=== PATIENT | female | born 1965 | race Caucasian/White ===

== ENCOUNTER 2018-05-18 20:37 | Emergency (ER) | payer SELFPAY ==
[~2018-05-18] VITALS: Ht 170.2 cm; Wt 90.7 kg
[~2018-05-18 20:37] MED LIST: ALPR1TAB2 PO; CARI350T PO; HYDR-2766 PO; OLAN10TA9 PO
[2018-05-18 20:45] VITALS: BP 96/48
[2018-05-18] MEDS ORDERED: predniSONE 10 MG TABLET ONE (21:33)
[2018-05-18] MEDS: predniSONE 10 MG TABLET PO ONE (21:37)
--- NOTE | 2018-05-18 21:44 | ED.ADGEN ---
Past History Past Medical History: COPD, Hypertension Past Surgical History: No Surgical History Additional Smoking Information: 1 PPD Alcohol Use: None Drug Use: None Adult General HPI HPI 53-year-old female presents the emergency department with multiple unrelated complaints that she would like to have addressed. She states that she has fallen off a ladder about one month ago and had some right forearm pain. She also states that in the morning when she wakes up she noticed that her hand has pain and tingling. Just states that she has allergies as well as COPD and gets relief from her inhalers but she has been having a lot of wheezing and dry coughing that have kept her from work. Review of Systems Review of Systems Constitutional: Denies fever or chills Eyes: Denies change in visual acuity, redness, or eye pain HENT: Admits to nasal congestion, denies sore throat Respiratory: Denies cough or shortness of breath Cardiovascular: No additional information not addressed in HPI GI: Denies abdominal pain, nausea, vomiting, bloody stools or diarrhea : Denies dysuria or hematuria Musculoskeletal: Denies back pain Integument: Denies rash or skin lesions Neurologic: Denies headache, focal weakness or sensory changes Endocrine: Denies polyuria or polydipsia All other systems were reviewed and found to be within normal limits, except as documented in this note. Family History Family History no sig Current Medications Current Medications Current Medications Medications (Trade) Dose Ordered Sig/Sara Start Time Stop Time Status Last Admin Dose Admin Prednisone (Prednisone) 10 mg STK-MED ONCE 05/18/18 21:33 05/18/18 21:34 DC Allergies Allergies Allergies Coded Allergies Type Severity Reaction Last Updated Verified Penicillins Allergy Severe Rash 11/13/14 Yes Physical Exam Physical Exam GENERAL: Awake, alert, well appearing, nontoxic HEAD/NECK/EYES: Normocephalic, Neck supple, PERRL ENT Airway patent, mucous membranes moist RESP: Bilateral expiratory greater than inspiratory wheezing, mild, no tachypnea , no increased work of breathing, no retractions, symmetrical breath sounds CV: Regular rhythm, normal perfusion ABD/GI: Soft, non-tender, no guarding, no rebound, no palpable pulsatile mass BACK: Inspection NL EXT: Neurovascularly intact, no deformities, flexion at the right wrist for 60 seconds reproduces pain/paresthesia consistent with carpal tunnel syndrome SKIN: Warm, dry NEURO: Oriented X3, normal speech, no motor deficits, no sensory deficits, CN II - XII intact PSYCH: Cooperative, appropriate affect Current Patient Data Vital Signs Vital Signs Date Time Temp Pulse Resp B/P (MAP) Pulse Ox O2 Delivery O2 Flow Rate FiO2 05/18/18 20:45 98.4 75 20 100 Room Air EKG EKG [] Radiology/Procedures Radiology/Procedures [] Impressions: Exacerbation Right carpal tunnel syndrome Course & Med Decision Making Course & Med Decision Making Patient here in the emergency department is highly consistent with COPD exacerbation triggered by seasonal allergies and right-sided carpal tunnel syndrome. There does not appear to be any significant injury from her fall which occurred one month ago. She is not having any chest pain. She has not have signs or symptoms of congestive heart failure or pneumonia. Doubt pulmonary embolus. She is generally well-appearing. Requesting work note. Getting her off work tomorrow. Advised to return if she has any new or worsening symptoms. Stable for discharge. Final Impression Final Impression COPD exacerbation Right carpal tunnel syndrome Phuong Disclaimer Phuong Disclaimer This electronic medical record was generated, in whole or in part, using a voice recognition dictation system. ADOLFO YANG DO May 18, 2018 21:44
[2018-05-18] MEDS ORDERED: PRED50TA PO (21:51)
[2018-05-18] MEDS: ACETAMINOPHEN/CODEINE 300/30MG TABLET PO ONE (21:53)
== END 2018-05-18 21:58 | disposition home or self-care (01) ==
LOC: ER 20:37
DX: G56.01 Carpal tunnel syndrome, right upper limb (principal); J44.1 Chronic obstructive pulmonary disease with (acute) exacerbation; I10 Essential (primary) hypertension; F17.210 Nicotine dependence, cigarettes, uncomplicated; Z88.0 Allergy status to penicillin
CPT/HCPCS: 99283; J7512

== ENCOUNTER 2018-08-15 00:57 | Emergency (ER) | payer SELFPAY ==
[~2018-08-15] VITALS: Ht 170.2 cm; Wt 95.3 kg
[~2018-08-15 00:57] MED LIST changes: -HYDR-2766 PO; +HYDR-2769 PO; +PRED50TA PO
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
[2018-08-15] MEDS ORDERED: THIAMINE 200 MG/2 ML VIAL. IV ONE (01:07)
[2018-08-15] MEDS ORDERED: MVI, ADULT NO.4 WITH VIT K 10 ML VIAL IV ONE (01:07)
[2018-08-15] MEDS ORDERED: FOLIC ACID 5 MG/ML SYRINGE for ER IV ONE (01:07)
[2018-08-15] MEDS ORDERED: MVI, ADULT NO.4 WITH VIT K 10 ML, FOLIC ACID SYRINGE for ER 1 MG, THIAMINE INJ 100 MG i... IV ONE ×4 (01:15)
[2018-08-15 01:46] LABS: BASO # 0.1 x10^3/uL (0.0-0.2); BASO % 1 % (0-3); EOS # 0.2 x10^3/uL (0.0-0.7); EOS % 2 % (0-3); HEMOGLOBIN 14.3 g/dL (12.0-15.5); LYMPH # 2.3 x10^3/uL (1.0-4.8); LYMPH % 18 % (24-48); MEAN CORPUSCULAR HEMOGLOBIN 30 pg (25-35); MEAN CORPUSCULAR HGB CONC 33 g/dL (31-37); MEAN CORPUSCULAR VOLUME 91 fL (79-100); MONO # 0.8 x10^3/uL (0.0-1.1); MONO % 6 % (0-9); NEUT # 9.1 x10^3uL (1.8-7.7); NEUT % 73 % (31-73); PLATELET COUNT 351 x10^3/uL (140-400); RED BLOOD COUNT 4.71 x10^6/uL (3.50-5.40); WHITE BLOOD COUNT 12.5 x10^3/uL (4.0-11.0)
[2018-08-15] MEDS ORDERED: TETANUS AND DIPHTHERIA TOX/PF 0.5 ML VIAL. VAX IM ONE (02:00)
[2018-08-15 02:09] LABS: ALBUMIN 3.5 g/dL (3.4-5.0); ALK PHOS 99 U/L (46-116); ALT (SGPT) 31 U/L (14-59); ANION GAP 13 (6-14); AST (SGOT) 38 U/L (15-37); BLOOD UREA NITROGEN 13 mg/dL (7-20); CALCIUM 8.6 mg/dL (8.5-10.1); CARBON DIOXIDE 24 mmol/L (21-32); CHLORIDE 100 mmol/L (98-107); CREATININE 0.8 mg/dL (0.6-1.0); GFR 75.3; GLUCOSE 102 mg/dL (70-99); LIPASE 132 U/L (73-393); MAGNESIUM 2.1 mg/dL (1.8-2.4); SODIUM 137 mmol/L (136-145); TOTAL BILIRUBIN 0.2 mg/dL (0.2-1.0); TOTAL PROTEIN 7.8 g/dL (6.4-8.2)
[2018-08-15 02:10] LABS: DIRECT BILIRUBIN < 0.1 mg/dL (0.0-0.2); POTASSIUM 5.1 mmol/L (3.5-5.1)
[2018-08-15 02:37] LABS: BARBITURATES NEG (NEG); BENZODIAZEPINES POS (NEG); CANNABINOIDS NEG (NEG); COCAINE NEG (NEG); METHADONE NEG (NEG); OPIATES POS (NEG); PHENCYCLIDINE NEG (NEG)
[2018-08-15 02:41] LABS: AMPHETAMINE/METHAMPHETAMINE NEG (NEG)
--- NOTE | 2018-08-15 02:41 | EKG ---
[address] [address] Test Date: 2018-08-15 Test Time: 02:27:04 Pat Name: MILLIE GUZMÁN Department: Room: Gender: F Invasive Cardiovascular Technologist: SOFYA : 1965 Requested By: RAIN BARROS Order Number: [id number] Reading MD: Azeem Marin MD Measurements Intervals [place] Rate: 94 P: 62 ME: 170 QRS: 75 QRSD: 98 T: 54 QT: 344 QTc: 435 Interpretive Statements SINUS RHYTHM Electronically Signed On 08-15-2018 10:11:35 PATIENT TRANSPORT ORDERLY by Azeem Marin MD
[2018-08-15] MEDS ORDERED: MORPHINE SULFATE 10 MG/ML SYRINGE. SQ ONE (02:45)
[2018-08-15 02:49] LABS: BACTERIA,URINE 0 /HPF (0-FEW); BILIRUBIN,URINE NEG (NEG); CLARITY,URINE CLEAR; COLOR,URINE YELLOW; GLUCOSE,URINE NEG (NEG); NITRITE,URINE NEG (NEG); RBC,URINE 0 /HPF (0-2); SQUAMOUS EPITHELIAL CELL,UR FEW /LPF; UROBILINOGEN,URINE 0.2 mg/dL (0.2 mg/dL); WBC,URINE OCC /HPF (0-4)
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
[2018-08-15 03:25] VITALS: BP 141/78
[2018-08-15] MEDS ORDERED: HYDR-1179 PO (03:40)
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
== END 2018-08-15 03:50 | disposition home or self-care (01) ==
LOC: ER 00:57
DX: S42.032A Displaced fracture of lateral end of left clavicle, initial encounter for closed fracture (principal); S46.002A Unspecified injury of muscle(s) and tendon(s) of the rotator cuff of left shoulder, initial encounter; S80.02XA Contusion of left knee, initial encounter; S80.01XA Contusion of right knee, initial encounter; S50.312A Abrasion of left elbow, initial encounter; F10.229 Alcohol dependence with intoxication, unspecified; R74.8 Abnormal levels of other serum enzymes; D72.829 Elevated white blood cell count, unspecified; F11.10 Opioid abuse, uncomplicated; F14.10 Cocaine abuse, uncomplicated; F19.10 Other psychoactive substance abuse, uncomplicated; J44.9 Chronic obstructive pulmonary disease, unspecified; I10 Essential (primary) hypertension; F17.210 Nicotine dependence, cigarettes, uncomplicated; Y08.89XA Assault by other specified means, initial encounter; Y93.89 Activity, other specified; Y92.098 Other place in other non-institutional residence as the place of occurrence of the external cause; Y99.8 Other external cause status; Y90.6 Blood alcohol level of 120-199 mg/100 ml
CPT/HCPCS: 36415; 70450; 71045; 72125; 73030; 73080; 73564; 80048; 80076; 80307; 81001; 82550; 83690; 83735; 83880; 84443; 84484; 85025; 85610; 85730; 90471; 90714; 93005; 96365; 96366; 96372; 99284; G0480; J2270; J7120

== ENCOUNTER 2020-06-25 13:32 | Emergency (ER) | payer SELFPAY ==
[~2020-06-25] VITALS: Ht 172.7 cm; Wt 90.0 kg
[~2020-06-25 13:32] MED LIST changes: +HYDR-1179 PO
[2020-06-25] MEDS ORDERED: IOHEXOL 350 MG/ML 100 ML VIAL. IV ONE (13:45)
--- NOTE | 2020-06-25 13:55 | PHYS DOC ---
Past History Past Medical History: COPD, Hypertension, Other Past Surgical History: No Surgical History Smoking: Cigarettes Alcohol Use: None Drug Use: None, Benzodiazepine, Cocaine, Opiates General Adult EDM: Chief Complaint: NEURO SYMPTOMS/DEFICITS HPI: HPI: Patient is a 55-year-old female who presents with a last known normal at 10 AM. Patient's had confusion with a mild expressive aphasia and lack of coordination especially with her left arm. Patient denies any pain. Patient denies any recent illnesses. Review of Systems: Review of Systems: Constitutional: Denies fever or chills Eyes: Denies change in visual acuity HENT: Denies nasal congestion or sore throat Respiratory: Denies cough or shortness of breath Cardiovascular: Denies chest pain or edema GI: Denies abdominal pain, nausea, vomiting, bloody stools or diarrhea : Denies dysuria Musculoskeletal: Denies back pain or joint pain Integument: Denies rash Neurologic: Denies headache, focal weakness or sensory changes but has some confusion and lack of coordination with her left arm Endocrine: Denies polyuria or polydipsia Lymphatic: Denies swollen glands Psychiatric: Denies depression or anxiety Current Medications: Current Meds: Current Medications Medications (Trade) Dose Ordered Sig/Sara Start Time Stop Time Status Last Admin Dose Admin Iohexol (Omnipaque 350 Mg/ml) 100 ml 1X ONCE 06/25/20 13:45 06/25/20 13:46 DC 06/25/20 13:49 100 ML Allergies: Allergies: Allergies Coded Allergies Type Severity Reaction Last Updated Verified Penicillins Allergy Severe Rash 06/25/20 Yes Physical Exam: PE: Constitutional: Well developed, well nourished, no acute distress, non-toxic appearance. [] HENT: Normocephalic, atraumatic, bilateral external ears normal, oropharynx moist, no oral exudates, nose normal. [] Eyes: PERRLA, EOMI, conjunctiva normal, no discharge. [] Neck: Normal range of motion, no tenderness, supple, no stridor. [] Cardiovascular:Heart rate regular rhythm, no murmur [] Lungs & Thorax: Bilateral breath sounds clear to auscultation [] Abdomen: Bowel sounds normal, soft, no tenderness, no masses, no pulsatile masses. [] Skin: Warm, dry, no erythema, no rash. [] Back: No tenderness, no CVA tenderness. [] Extremities: No tenderness, no cyanosis, no clubbing, ROM intact, no edema. [] Neurologic: Alert and oriented X 3, normal motor function, normal sensory function, mild intermittent confusion, mild problems with word finding mild lack of coordination with predominantly left upper extremity Psychologic: Affect normal, judgement normal, mood normal. [] Current Patient Data: Labs: Laboratory Tests Test 06/25/20 13:10 06/25/20 13:20 06/25/20 13:39 White Blood Count 9.7 x10^3/uL Red Blood Count 4.44 x10^6/uL Hemoglobin 13.5 g/dL Hematocrit 42.2 % Mean Corpuscular Volume 95 fL Mean Corpuscular Hemoglobin 30 pg Mean Corpuscular Hemoglobin Concent 32 g/dL Red Cell Distribution Width 13.7 % Platelet Count 478 x10^3/uL Neutrophils (%) (Auto) 67 % Lymphocytes (%) (Auto) 21 % Monocytes (%) (Auto) 9 % Eosinophils (%) (Auto) 3 % Basophils (%) (Auto) 0 % Neutrophils # (Auto) 6.5 x10^3uL Lymphocytes # (Auto) 2.1 x10^3/uL Monocytes # (Auto) 0.9 x10^3/uL Eosinophils # (Auto) 0.3 x10^3/uL Basophils # (Auto) 0.0 x10^3/uL Prothrombin Time 10.0 SEC Prothromb Time International Ratio 1.0 Activated Partial Thromboplast Time 26 SEC Sodium Level 141 mmol/L Potassium Level 3.6 mmol/L Chloride Level 107 mmol/L Carbon Dioxide Level 19 mmol/L Anion Gap 15 Blood Urea Nitrogen 18 mg/dL Creatinine 1.9 mg/dL Estimated GFR (Cockcroft-Gault) 27.5 BUN/Creatinine Ratio 9 Glucose Level 98 mg/dL Calcium Level 9.1 mg/dL Total Bilirubin 0.1 mg/dL Aspartate Amino Transf (AST/SGOT) 19 U/L Alanine Aminotransferase (ALT/SGPT) 24 U/L Alkaline Phosphatase 130 U/L Troponin I Quantitative < 0.017 ng/mL Total Protein 7.4 g/dL Albumin 3.3 g/dL Albumin/Globulin Ratio 0.8 Current Medications Medications (Trade) Dose Ordered Sig/Sara Route PRN Reason Start Time Stop Time Status Last Admin Dose Admin Iohexol (Omnipaque 350 Mg/ml) 100 ml 1X ONCE IV 06/25/20 13:45 06/25/20 13:46 DC 06/25/20 13:49 Info (Do NOT chart on this entry -- for MONITORING) 1 each PRN DAILY PRN MC SEE COMMENTS 06/25/20 14:00 06/27/20 13:59 Alteplase, Recombinant 8.1 ml @ 486 mls/hr 1X ONCE IV 06/25/20 14:15 06/25/20 14:17 DC 06/25/20 14:27 Alteplase, Recombinant 72.9 ml @ 72.9 mls/hr Q1H IV 06/25/20 14:15 06/25/20 15:14 DC 06/25/20 14:31 Sodium Chloride 25 ml @ 0 mls/hr 1X ONCE IV 06/25/20 14:15 06/25/20 14:23 DC Labetalol HCl (Normodyne) 10 mg PRN Q10MIN PRN IV HYPERTENSION 06/25/20 14:15 Alteplase, Recombinant 100 ml @ As Directed STK-MED ONCE IV 06/25/20 14:15 06/25/20 14:19 DC Vital Signs: Vital Signs Date Time Temp Pulse Resp B/P (MAP) Pulse Ox O2 Delivery O2 Flow Rate FiO2 06/25/20 13:37 98.7 93 16 137/80 (99) 98 Room Air EKG: EKG: [] EKG interpreted by me normal sinus rhythm with a rate of 87 normal axis normal intervals normal ST segments Radiology/Procedures: Radiology/Procedures: [][address] [address] IMAGING REPORT Signed PATIENT: MILLIE GUZMÁN ACCOUNT: [id number] : 1965 LOCATION: ER AGE: 55 SEX: F EXAM STATUS: REG ER ORD. PHYSICIAN: KUNAL MACIEL MD REASON: confusion PROCEDURE: CT ANGIOGRAPHY HEAD AND NECK Examination: CT ANGIOGRAPHY HEAD AND NECK History: confusion Comparison/Correlation: None EXAM: TECHNIQUE: Computed tomographic angiography of the head and neck was performed following IV contrast according to arteriography protocol. Three-dimensional reconstructions were also performed. Maximum intensity projection images were provided. Exam is limited due to venous contamination. FINDINGS: Angiographic findings: The aortic arch has a typical branching pattern. There is no arch vessel stenosis. Motion limits evaluation of the aortic arch level. Both common carotid arteries are patent without stenosis. Both internal carotid arteries are patent without stenosis. The external carotid systems are patent but have mild narrowing bilaterally at the origins. Mild diffuse atheromatous involvement of the carotid bulb regions noted. Carotid bulbs bilaterally are morphologically very small although patent with no significant stenosis. The vertebral arteries are patent. The basilar artery is patent. Both posterior cerebral arteries are patent. The posterior communicating arteries are developmentally absent. The intracranial internal carotid arteries demonstrate no stenosis. The middle cerebral arteries are patent. The anterior cerebral arteries are patent. The anterior communicating artery is visualized. Nonangiographic findings: There is no intracranial hemorrhage. Mcneill-white differentiation is preserved. The ventricles are normal in size and position. The paranasal sinuses appear clear. The orbits are unremarkable. The temporal bones are unremarkable. Bone windows reveal reversal of cervical lordosis. Centrilobular emphysematous involvement of the lung apices noted. The parotid glands and submandibular glands are unremarkable. The thyroid gland demonstrates no suspicious lesions. Incidental note is made of a tongue piercing. There are no laryngeal or pharyngeal masses. There are no pathologically enlarged lymph nodes. IMPRESSION: No large vessel occlusion. No significant stenosis. Mild atheromatous involvement of the carotid bulb bilaterally. Carotid bulbs are developmentally small in size with no significant stenoses. PQRS Compliance Statement - Stenosis calculations for CT, MR and conventional angiography are based upon measurement of the distal ICA diameter in accordance with the NASCET methodology. Stenosis calculations for carotid ultrasound studies are derived from validated velocity criteria which are known to correlate with the NASCET methodology. *One or more of the following individualized dose reduction techniques were utilized for this examination: 1. Automated exposure control. 2. Adjustment of the mA and/or kV according to patient size. 3. Use of iterative reconstruction technique. Electronically signed by: Clark North MD (06/25/2020 2:23 PM) [id number] DICTATED AND SIGNED BY: CLARK NORTH MD DATE: 06/25/20 9695 CC: KUNAL MACIEL MD; ROCIO SANFORD ~ [address] [address] IMAGING REPORT Signed PATIENT: MILLIE GUZMÁN ACCOUNT: [id number] : 1965 LOCATION: ER AGE: 55 SEX: F EXAM STATUS: REG ER ORD. PHYSICIAN: KUNAL MACIEL MD REASON: confusion PROCEDURE: CT CODE STROKE HEAD WO Examination: CT CODE STROKE HEAD WO History: confusion Comparison/Correlation: None Findings: Axial images of the head were obtained without contrast. Ventricles are normal size. No intracranial hemorrhage, midline shift, or mass effect. There is a curvilinear hyperdensity at the lateral left frontotemporal region which may represent a thrombosed vein or other vascular structure. It is best seen on axial images 11 through 13. Mild atrophy is present. Bony structures are unremarkable. Impression: No intracranial hemorrhage. Consider further imaging if infarct is a persistent concern. Linear density which most probably represents a thrombosed cerebral vein at the lateral left frontotemporal region. On 06/25/2020 at 1:35 PM results were reported to referring ED provider. PQRS Compliance Statement: One or more of the following individualized dose reduction techniques were utilized for this examination: 1. Automated exposure control 2. Adjustment of the mA and/or kV according to patient size 3. Use of iterative reconstruction technique Electronically signed by: Clark North MD (06/25/2020 2:12 PM) [id number] DICTATED AND SIGNED BY: CLARK NORTH MD DATE: 06/25/20 1412 CC: KUNAL MACIEL MD; ROCIO SANFORD ~ [address] [address] IMAGING REPORT Signed PATIENT: MILLIE GUZMÁN ACCOUNT: [id number] : 1965 LOCATION: ER AGE: 55 SEX: F EXAM STATUS: REG ER ORD. PHYSICIAN: KUNAL MACIEL MD REASON: confusion PROCEDURE: PORTABLE CHEST 1V PORTABLE CHEST 1V Clinical History: Reason: confusion / Spl. Instructions: / History: Technique: AP view of the chest was obtained at 06/25/2020 1:39 PM. Comparison: August 15, 2018. Findings: The cardiomediastinal silhouette is normal. The pulmonary vasculature is normal. There is vague patchy opacities in the right. Impression: Vague right-sided infiltrates could be discoid atelectasis. Recommend follow-up chest x-ray to complete resolution. Electronically signed by: Rosa Isela Crowe III, MD (06/25/2020 2:06 PM) [facility] DICTATED AND SIGNED BY: ROSA ISELA CROWE III, MD DATE: 06/25/20 2156 CC: KUNAL MACIEL MD; ROCIO SANFORD ~ Heart Score: Risk Factors: Risk Factors: DM, Current or recent (<one month) smoker, HTN, HLP, family history of CAD, obesity. Risk Scores: Score 0 - 3: 2.5% MACE over next 6 weeks - Discharge Home Score 4 - 6: 20.3% MACE over next 6 weeks - Admit for Clinical Observation Score 7 - 10: 72.7% MACE over next 6 weeks - Early Invasive Strategies Course & Med Decision Making: Course & Med Decision Making Pertinent Labs and Imaging studies reviewed. (See chart for details) [] 1a Level of Consciousness: 0 = Alert; keenly responsive. 1b LOC Questions: 0 = Answers both questions correctly. 1c 0 = Performs both tasks correctly. 2 Best Gaze: 0 = Normal. 3. Visual: 0 = No visual loss. 4. Facial Palsy: 0 = Normal symmetrical movements. 5. Motor Arm: Left 0 = No drift; limb holds 90 (or 45) degrees for full 10 seconds. Right 0 = No drift; limb holds 90 (or 45) degrees for full 10 seconds. 6. Motor Leg: Left 0 = No drift; leg holds 30-degree position for full 5 seconds. Right 0 = No drift; leg holds 30-degree position for full 5 seconds. 7. Limb Ataxia: 2 = Present in two limbs. lue, lle 8. Sensory: 0 = Normal; no sensory loss. 9. Best Langauge: 1 = [id number] aphasia; some obvious loss of fluency or facility of comprehension, without significant limitation on ideas expressed or form of expression. Reduction of speech and/or comprehension, however, makes conversation about provided materials difficult or impossible. For example, in conversation about provided materials, examiner can identify picture or naming card content from patient's response. 10 Dysarthria: 0 = Normal. 11. Extinction and Inattention (formerly Neglect): 1 total [address] Schmitz at 2:12 PM. Patient has no contraindications to TPA therefore TPA has been ordered. I discussed with patients the risk and benefits of administering TPA in the 3 to 4-1/2-hour window including approximately 5% risk of intracranial hemorrhage, patient understands the risks and elects to proceed. TPA infusion began at 2:27 PM Discussed the case with Dr. Jeff at [facility] at 2:42 PM Patient reassessed at 3 PM and signs and symptoms are clinically improved. Critical care time was [40] minutes exclusive of procedures. Critical condition: Acute ischemic stroke Critical intervention: Stroke activation, multiple reassessments, TPA administration, multiple consultations and transfer 3:38 PM, discussed with Dr. Torres who accepted transfer I was called into the room as patient had a drop in blood pressure to the 80s. Patient does not have a headache and is neurologically still somewhat improved but has some nausea. Patient is given Zofran and 500 cc of saline. Reassessed at 4:40 PM and symptoms are clinically improved Phuong Disclaimer: Phuong Disclaimer: This electronic medical record was generated, in whole or in part, using a voice recognition dictation system. Departure Departure: Impression: Primary Impression: Acute ischemic stroke Disposition: 02 DC/TRF OTHER SHORT TERM HOS Condition: GUARDED Referrals: ROCIO SANFORD (PCP) KUNAL MACIEL MD Jun 25, 2020 13:55
[2020-06-25] MEDS ORDERED: CONTRAST GIVEN. MC PRN (14:00)
[2020-06-25 14:02] LABS: BASO % 0 % (0-3); EOS # 0.3 x10^3/uL (0.0-0.7); EOS % 3 % (0-3); HEMATOCRIT 42.2 % (36.0-47.0); HEMOGLOBIN 13.5 g/dL (12.0-15.5); LYMPH # 2.1 x10^3/uL (1.0-4.8); LYMPH % 21 % (24-48); MEAN CORPUSCULAR HEMOGLOBIN 30 pg (25-35); MEAN CORPUSCULAR HGB CONC 32 g/dL (31-37); MEAN CORPUSCULAR VOLUME 95 fL (79-100); MONO # 0.9 x10^3/uL (0.0-1.1); MONO % 9 % (0-9); NEUT # 6.5 x10^3uL (1.8-7.7); NEUT % 67 % (31-73); PLATELET COUNT 478 x10^3/uL (140-400); RED BLOOD COUNT 4.44 x10^6/uL (3.50-5.40); RED CELL DISTRIBUTION WIDTH 13.7 % (11.5-14.5); WHITE BLOOD COUNT 9.7 x10^3/uL (4.0-11.0)
[2020-06-25 14:08] LABS: CALCIUM 9.1 mg/dL (8.5-10.1); CREATININE 1.9 mg/dL (0.6-1.0); GFR 27.5; POTASSIUM 3.6 mmol/L (3.5-5.1)
--- NOTE | 2020-06-25 14:08 | RAD ---
PORTABLE CHEST 1V Clinical History: Reason: confusion / Spl. Instructions: / History: Technique: AP view of the chest was obtained at 06/25/2020 1:39 PM. Comparison: August 15, 2018. Findings: The cardiomediastinal silhouette is normal. The pulmonary vasculature is normal. There is vague patchy opacities in the right. Impression: Vague right-sided infiltrates could be discoid atelectasis. Recommend follow-up chest x-ray to complete resolution. Electronically signed by: Darío Soria III, MD (06/25/2020 2:06 PM) ROSALINA
[2020-06-25 14:14] LABS: ALBUMIN 3.3 g/dL (3.4-5.0); ALBUMIN/GLOBULIN RATIO 0.8 (1.0-1.7); TOTAL BILIRUBIN 0.1 mg/dL (0.2-1.0); TOTAL PROTEIN 7.4 g/dL (6.4-8.2)
--- NOTE | 2020-06-25 14:14 | RAD ---
Examination: CT CODE STROKE HEAD WO History: confusion Comparison/Correlation: None Findings: Axial images of the head were obtained without contrast. Ventricles are normal size. No intracranial hemorrhage, midline shift, or mass effect. There is a curvilinear hyperdensity at the lateral left frontotemporal region which may represent a thrombosed vein or other vascular structure. It is best seen on axial images 11 through 13. Mild atrophy is present. Bony structures are unremarkable. Impression: No intracranial hemorrhage. Consider further imaging if infarct is a persistent concern. Linear density which most probably represents a thrombosed cerebral vein at the lateral left frontotemporal region. On 06/25/2020 at 1:35 PM results were reported to referring ED provider. PQRS Compliance Statement: One or more of the following individualized dose reduction techniques were utilized for this examination: 1. Automated exposure control 2. Adjustment of the mA and/or kV according to patient size 3. Use of iterative reconstruction technique Electronically signed by: Clark Hernandez MD (06/25/2020 2:12 PM) [id number]
[2020-06-25] MEDS ORDERED: LABETALOL 20 MG/4 ML DISP.SYRIN. IV PRN (14:15)
[2020-06-25] MEDS ORDERED: ALTEPLASE IV ONE (14:15)
[2020-06-25] MEDS ORDERED: NORMAL SALINE IV ONE (14:15)
[2020-06-25] MEDS ORDERED: ALTEPLASE IV SCH (14:15)
[2020-06-25] MEDS ORDERED: ALTEPLASE 100 MG IV ONE (14:15)
--- NOTE | 2020-06-25 14:26 | RAD ---
Examination: CT ANGIOGRAPHY HEAD AND NECK History: confusion Comparison/Correlation: None EXAM: TECHNIQUE: Computed tomographic angiography of the head and neck was performed following IV contrast according to arteriography protocol. Three-dimensional reconstructions were also performed. Maximum intensity projection images were provided. Exam is limited due to venous contamination. FINDINGS: Angiographic findings: The aortic arch has a typical branching pattern. There is no arch vessel stenosis. Motion limits evaluation of the aortic arch level. Both common carotid arteries are patent without stenosis. Both internal carotid arteries are patent without stenosis. The external carotid systems are patent but have mild narrowing bilaterally at the origins. Mild diffuse atheromatous involvement of the carotid bulb regions noted. Carotid bulbs bilaterally are morphologically very small although patent with no significant stenosis. The vertebral arteries are patent. The basilar artery is patent. Both posterior cerebral arteries are patent. The posterior communicating arteries are developmentally absent. The intracranial internal carotid arteries demonstrate no stenosis. The middle cerebral arteries are patent. The anterior cerebral arteries are patent. The anterior communicating artery is visualized. Nonangiographic findings: There is no intracranial hemorrhage. Mcneill-white differentiation is preserved. The ventricles are normal in size and position. The paranasal sinuses appear clear. The orbits are unremarkable. The temporal bones are unremarkable. Bone windows reveal reversal of cervical lordosis. Centrilobular emphysematous involvement of the lung apices noted. The parotid glands and submandibular glands are unremarkable. The thyroid gland demonstrates no suspicious lesions. Incidental note is made of a tongue piercing. There are no laryngeal or pharyngeal masses. There are no pathologically enlarged lymph nodes. IMPRESSION: No large vessel occlusion. No significant stenosis. Mild atheromatous involvement of the carotid bulb bilaterally. Carotid bulbs are developmentally small in size with no significant stenoses. PQRS Compliance Statement - Stenosis calculations for CT, MR and conventional angiography are based upon measurement of the distal ICA diameter in accordance with the NASCET methodology. Stenosis calculations for carotid ultrasound studies are derived from validated velocity criteria which are known to correlate with the NASCET methodology. *One or more of the following individualized dose reduction techniques were utilized for this examination: 1. Automated exposure control. 2. Adjustment of the mA and/or kV according to patient size. 3. Use of iterative reconstruction technique. Electronically signed by: Clark Hernandez MD (06/25/2020 2:23 PM) [id number]
--- NOTE | 2020-06-25 15:15 | EKG ---
[address] [address] Test Date: 2020-06-25 Test Time: 14:15:49 Pat Name: MILLIE GUZMÁN Department: Room: Gender: F [employer]: JUSTUS : 1965 Requested By: KUNAL MACIEL Order Number: [id number] Reading MD: Measurements Intervals Lissie Rate: 87 P: -90 RI: 92 QRS: 80 QRSD: 98 T: 63 QT: 370 QTc: 451 Interpretive Statements SUPRAVENTRICULAR RHYTHM OTHERWISE NORMAL ECG RI6.02 No previous ECG available for comparison
[2020-06-25] MEDS ORDERED: ONDANSETRON PF 4 MG/2 ML VIAL. IVP ONE (15:30)
[2020-06-25] MEDS ORDERED: IV NORMAL SALINE 500ML 500 ML IV ONE (15:45)
[2020-06-25 19:00] VITALS: BP 104/72
== END 2020-06-25 19:10 | disposition short-term general hospital (02) ==
LOC: ER 13:32
DX: I63.9 Cerebral infarction, unspecified (principal); R47.01 Aphasia; R41.0 Disorientation, unspecified; R27.9 Unspecified lack of coordination; J44.9 Chronic obstructive pulmonary disease, unspecified; I10 Essential (primary) hypertension; F17.210 Nicotine dependence, cigarettes, uncomplicated; Z88.0 Allergy status to penicillin
CPT/HCPCS: 36415; 37195; 70450; 70496; 70498; 71045; 80053; 84484; 85025; 85610; 85730; 93005; 96361; 96374; 99291; J2405; J2997; J7040; Q9967

== ENCOUNTER 2020-07-09 10:22 | Emergency (ER) | payer SELFPAY ==
[~2020-07-09] VITALS: Ht 170.2 cm; Wt 88.6 kg
[2020-07-09 10:59] VITALS: BP 133/86
--- NOTE | 2020-07-09 13:23 | PHYS DOC ---
Past History Past Medical History: CVA, Hypertension Past Surgical History: No Surgical History Smoking: Cigarettes Alcohol Use: Occasionally Drug Use: None, Benzodiazepine, Cocaine, Opiates Adult General Chief Complaint Chief Complaint: LACERATION/AVULSION HPI HPI Patient is a 55-year-old female who presents for right forearm laceration. This occurred approximately 10 hours ago when at home. Patient was tripped by her dog and subsequently fell onto piece of furniture cutting her right upper extremity. Hemostasis was immediately achieved; however, patient unsure if it needed stitches or not prompting her to come to our ER for evaluation. Patient denies any pain, changes in motor or sensory function, no neurologic deficits. Her tetanus is out of date. She recently suffered a stroke 3 weeks ago and is currently on an unknown blood thinner which she believes to be Plavix Review of Systems Review of Systems Fourteen body systems of review of systems have been reviewed. See HPI for pertinent positives and negative responses, other rosas all other systems are negative, non-pertinent or non-contributory Allergies Allergies Allergies Coded Allergies Type Severity Reaction Last Updated Verified Penicillins Allergy Severe Rash 06/25/20 Yes Physical Exam Physical Exam Constitutional: Well developed, well nourished, no acute distress, non-toxic appearance. HENT: Normocephalic, atraumatic, bilateral external ears normal, oropharynx moist, no oral exudates, nose normal. Eyes: PERRLA, EOMI, conjunctiva normal, no discharge. Neck: Normal range of motion, no tenderness, supple, no stridor. Cardiovascular: Heart rate regular, sinus rhythm, no murmurs rubs or gallops Lungs & Thorax: Bilateral breath sounds clear to auscultation Abdomen: Bowel sounds normal, soft, no tenderness, no masses, no pulsatile masses. Nonsurgical abdomen, no peritoneal signs Skin: Warm, dry, no erythema, no rash. 2.5 cm laceration which is linear in nature involving subcutaneous tissue only without any muscle and/or tendon involvement to right forearm on the dorsal surface midway between elbow and wrist Back: No tenderness, no CVA tenderness. Extremities: No tenderness, no cyanosis, no clubbing, ROM intact, no edema. Neurologic: Alert and oriented X3, grossly normal motor & sensory function, no focal deficits noted. Psychologic: Affect normal, judgement normal, mood normal. Current Patient Data Vital Signs Vital Signs Date Time Temp Pulse Resp B/P (MAP) Pulse Ox O2 Delivery O2 Flow Rate FiO2 07/09/20 10:59 98.4 96 18 133/86 (102) 97 Room Air EKG EKG [] Radiology/Procedures Radiology/Procedures [] Heart Score HEART Score for Chest Pain: HEART Score for Chest Pain Response (Comments) Value History Slighlty/Non-Suspicious 0 ECG Normal 0 Age < 45 0 Risk Factors No Risk Factors 0 Total 0 Risk Factors: Risk Factors: DM, Current or recent (<one month) smoker, HTN, HLP, family history of CAD, obesity. Risk Scores: Risk Factors: DM, Current or recent (<one month) smoker, HTN, HLP, family history of CAD, obesity. Course & Med Decision Making Course & Med Decision Making Laceration repaired. Tetanus updated. No indication for antibiotics at this time X4 simple interrupted sutures placed. Advised patient to return to our facility and/or primary care for suture removal in approximately 7 to 14 days Wound care instructions advised, strict return precautions discussed with good understanding by patient, all questions and concerns addressed prior to ER departure in stable condition Dragon Disclaimer Dragon Disclaimer This electronic medical record was generated, in whole or in part, using a voice recognition dictation system. Laceration Repair Lac Repair Indication: Laceration Procedure: The patient was placed in the appropriate position and irrigated with copious amount of tap water. Injection site and wound was then cleansed with alcohol prep pads. A total of 2.5 cc of 2% lidocaine with epinephrine were adm inistered for anesthesia. 3.0 nonabsorbable suture was used to tie x4 simple interrupted sutures resulting in well approximated closed skin borders. The site was then cleansed and dressed with appropriate dressing. Total repaired wound length: 2.5 cm The patient tolerated the procedure well without any observed and/or reported complications. 0 cc blood loss Departure Departure: Impression: Primary Impression: Laceration of upper arm Disposition: 01 DC HOME SELF CARE/HOMELESS Condition: STABLE Referrals: ROCIO SANFORD (PCP) Patient Instructions: Laceration Care, Adult Additional Instructions: As discussed prior to ER departure, please call your primary care physician to schedule outpatient follow-up in upcoming 5 to 10 days time for wound evaluation and suture removal of x4 simple interrupted sutures You are up-to-date on your tetanus vaccinations, there is no muscle, tendon or foreign body apparent, there is no indication for antibiotics Any concerning signs or symptoms that were discussed prior to your ER departure occur prior to outpatient follow-up please do not hesitate to come back for repeat evaluation Is a pleasure to take care of you today and I wish you a speedy recovery KALEY MARES DO Jul 09, 2020 13:23
== END 2020-07-09 13:30 | disposition home or self-care (01) ==
LOC: ER 10:22
DX: S51.811A Laceration without foreign body of right forearm, initial encounter (principal); I10 Essential (primary) hypertension; F17.210 Nicotine dependence, cigarettes, uncomplicated; Z86.73 Personal history of transient ischemic attack (TIA), and cerebral infarction without residual deficits; Z88.0 Allergy status to penicillin; W01.118A Fall on same level from slipping, tripping and stumbling with subsequent striking against other sharp object, initial encounter; Y93.89 Activity, other specified; Y92.89 Other specified places as the place of occurrence of the external cause; Y99.8 Other external cause status
CPT/HCPCS: 12001; 99282

== ENCOUNTER 2021-02-22 07:42 | Inpatient (IN) | payer SELFPAY ==
[~2021-02-22] VITALS: Ht 170.2 cm; Wt 83.3 kg
[2021-02-22] MEDS ORDERED: ONDANSETRON PF 4 MG/2 ML VIAL. ONE (07:57)
--- NOTE | 2021-02-22 08:14 | PHYS DOC ---
Past History Past Medical History: CVA, Hypertension Past Surgical History: No Surgical History Smoking: Cigarettes Alcohol Use: Occasionally Drug Use: None, Benzodiazepine, Cocaine, Opiates Adult General Chief Complaint Chief Complaint: ABDOMINAL PAIN HPI HPI Patient is a 56-year-old female presenting for nausea and vomit. Reports symptom onset was yesterday morning without any known inciting trauma, medication changes, exposure and concerning ingestion. P.o. intake makes worse, nothing known makes better. Patient denies any actual pain just reports genera lized nausea with x3 episodes of nonbloody nonbilious emesis. Denies any fever, lightheadedness, vision changes, chest pain, ripping or tearing sensation in chest, shortness of breath past baseline, productive cough, abdominal pain or dysuria. Patient does admit she has had poor urine output in past 24 hours since generalized nausea and emesis started. She has no known COVID-19 exposure, she is not vaccinated to this yet. Later in ER visit she reports vague right upper quadrant pain to palpation with no history of abdominal surgeries Review of Systems Review of Systems Fourteen body systems of review of systems have been reviewed. See HPI for pertinent positives and negative responses, other rosas all other systems are neg ative, non-pertinent or non-contributory Current Medications Current Medications Current Medications Medications (Trade) Dose Ordered Sig/Sara Start Time Stop Time Status Last Admin Dose Admin Ondansetron HCl (Zofran) 4 mg STK-MED ONCE 02/22/21 07:57 02/22/21 07:57 DC Allergies Allergies Allergies Coded Allergies Type Severity Reaction Last Updated Verified Penicillins Allergy Severe Rash 06/25/20 Yes Physical Exam Physical Exam Constitutional: Well developed, well nourished, no acute distress, non-toxic appearance. HENT: Normocephalic, atraumatic, bilateral external ears normal, oropharynx dry, no oral exudates, nose normal. Eyes: PERRLA, EOMI, conjunctiva normal, no discharge. Neck: Normal range of motion, no tenderness, supple, no stridor. Cardiovascular: Heart rate regular, sinus rhythm, no murmurs rubs or gallops Lungs & Thorax: No respiratory distress or accessory muscle use but there is mild rhonchi in bilateral bases Abdomen: Bowel sounds normal, soft, right upper quadrant pain with palpation without guarding or rebound, no masses, no pulsatile masses. Nonsurgical abdomen, no peritoneal signs Skin: Warm, dry, no erythema, no rash. Back: No tenderness, no CVA tenderness. Extremities: No tenderness, no cyanosis, no clubbing, ROM intact, no edema. Neurologic: Alert and oriented X 3, grossly normal motor & sensory function, no focal deficits noted. Psychologic: Affect normal, judgement normal, mood normal. Current Patient Data Vital Signs Vital Signs Date Time Temp Pulse Resp B/P (MAP) Pulse Ox O2 Delivery O2 Flow Rate FiO2 02/22/21 08:08 98.0 110 18 79/41 (54) 97 Room Air Vital Signs Date Time Temp Pulse Resp B/P (MAP) Pulse Ox O2 Delivery O2 Flow Rate FiO2 02/22/21 08:08 98.0 110 18 79/41 (54) 97 Room Air Lab Results Laboratory Tests Test 02/22/21 07:54 02/22/21 08:50 02/22/21 08:53 White Blood Count 30.6 x10^3/uL Red Blood Count 3.90 x10^6/uL Hemoglobin 11.7 g/dL Hematocrit 35.6 % Mean Corpuscular Volume 91 fL Mean Corpuscular Hemoglobin 30 pg Mean Corpuscular Hemoglobin Concent 33 g/dL Red Cell Distribution Width 14.5 % Platelet Count 357 x10^3/uL Neutrophils (%) (Auto) 88 % Lymphocytes (%) (Auto) 4 % Monocytes (%) (Auto) 8 % Eosinophils (%) (Auto) 0 % Basophils (%) (Auto) 0 % Neutrophils # (Auto) 27.0 x10^3uL Lymphocytes # (Auto) 1.2 x10^3/uL Monocytes # (Auto) 2.3 x10^3/uL Eosinophils # (Auto) 0.1 x10^3/uL Basophils # (Auto) 0.1 x10^3/uL Platelet Estimate Pending Sodium Level 138 mmol/L Potassium Level 4.1 mmol/L Chloride Level 104 mmol/L Carbon Dioxide Level 15 mmol/L Anion Gap 19 Blood Urea Nitrogen 25 mg/dL Creatinine 1.9 mg/dL Estimated GFR (Cockcroft-Gault) 27.4 BUN/Creatinine Ratio 13 Glucose Level 76 mg/dL Calcium Level 8.5 mg/dL Total Bilirubin 0.6 mg/dL Aspartate Amino Transf (AST/SGOT) 36 U/L Alanine Aminotransferase (ALT/SGPT) 28 U/L Alkaline Phosphatase 164 U/L Troponin I Quantitative < 0.017 ng/mL Total Protein 6.6 g/dL Albumin 2.7 g/dL Albumin/Globulin Ratio 0.7 Lactic Acid Level 0.7 mmol/L Urine Collection Type Unknown Urine Color Yellow Urine Clarity Hazy Urine pH 5.5 Urine Specific [place] 1.025 Urine Protein >100 mg/dl Urine Glucose (UA) Neg mg/dL Urine Ketones (Stick) Trace mg/dL Urine Blood Mod Urine Nitrite Pos Urine Bilirubin Mod Urine Urobilinogen Dipstick 1.0 mg/dL Urine Leukocyte Esterase Mod Urine RBC Rare /HPF Urine WBC >40 /HPF Urine Squamous Epithelial Cells None /LPF Urine Bacteria Few /HPF Urine Granular Casts Few /HPF Current Medications Medications (Trade) Dose Ordered Sig/Sara Route PRN Reason Start Time Stop Time Status Last Admin Dose Admin Ondansetron HCl (Zofran) 4 mg STK-MED ONCE .ROUTE 02/22/21 07:57 02/22/21 07:57 DC Sodium Chloride 1,000 ml @ 1,000 mls/hr 1X ONCE IV 02/22/21 08:15 02/22/21 09:14 DC 02/22/21 08:15 Sodium Chloride 1,000 ml @ 1,000 mls/hr 1X ONCE IV 02/22/21 08:45 02/22/21 09:44 DC Sodium Chloride 500 ml @ 0 mls/hr 1X ONCE IV 02/22/21 09:15 02/22/21 09:16 DC Ceftriaxone Sodium 2 gm/ Sodium Chloride 100 ml @ 200 mls/hr 1X ONCE IV 02/22/21 10:00 02/22/21 10:29 EKG EKG EKG ordered and interpreted by myself at 0824 hrs. as sinus rhythm at 97 bpm, unremarkable intervals, no axis deviation, no acute ischemic findings, no STEMI Radiology/Procedures Radiology/Procedures INDICATION: Reason: cough / Spl. Instructions: / History: COMPARISON: June 25, 2020 FINDINGS: Single view of chest obtained. Mild linear opacities at the left lung base. Cardiac silhouette is similar to prior. Calcific atherosclerosis. 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 IMPRESSION: * Linear opacity at the left lung base which can be seen with atelectasis or scarring. Electronically signed by: Jon Kline MD (02/22/2021 9:09 AM) [id number] ///////////////////// Exam Date: 02/22/2021 9:[address] ABDOMEN+PELVIS WO Indication: Reason: ruq pain / Spl. Instructions: / History: . TECHNIQUE: CT examination of the abdomen and pelvis was performed without oral or intravenous contrast. One or more of the following dose reduction techniques were utilized: *Automated exposure control (AEC) *Adjustment of mA and/or kV according to patient size *Use of iterative reconstruction technique *CT scan done according to ALARA, or ALARA/IMAGE GENTLY FINDINGS: There are patchy infiltrates and/or atelectasis in the lung bases bilaterally, right worse than left. The liver, gallbladder, spleen, pancreas, and adrenal glands are normal. Mild perinephric stranding around the kidneys bilaterally is nonspecific. The kidneys are otherwise normal bilaterally. No hydronephrosis or hydroureter is seen. No urinary tract calculi are seen. Urinary bladder is normal in ap pearance. There is no bowel obstruction or inflammation. The appendix is normal. Moderate atherosclerotic calcifications are seen. No lymphadenopathy or ascites is seen. Degenerative changes are seen in the spine. IMPRESSION: Mild perinephric stranding around the kidneys is nonspecific. This can be seen with pyelonephritis but can also be seen in asymptomatic patients. Correlate clinically. Otherwise normal appearance of the kidneys and bladder. No hydronephrosis or hydroureter. No urinary tract calculi. Electronically signed by: Venkata Ochoa MD (02/22/2021 9:34 AM) [id number] Heart Score C/O Chest Pain: No HEART Score for Chest Pain: HEART Score for Chest Pain Response (Comments) Value History Slighlty/Non-Suspicious 0 ECG Normal 0 Age >45 - < 65 1 Risk Factors 1 or 2 Risk Factors 1 Troponin < Normal Limit 0 Total 2 Risk Factors: Risk Factors: DM, Current or recent (<one month) smoker, HTN, HLP, family history of CAD, obesity. Risk Scores: Risk Factors: DM, Current or recent (<one month) smoker, HTN, HLP, family history of CAD, obesity. Course & Med Decision Making Course & Med Decision Making Airway patent, breathing unlabored, IV access and vitals obtained concerning for tachycardia and hypotension Comprehensive HPI, physical exam and ER work-up concerning for sepsis with source being UTI. 30 cc/kg, a total of 2.5 L IV fluid administered with improvement of tachycardia and improved MAP greater than 65. 2 g IV Rocephin administered for UTI Nonetheless, patient condition did not improve with ER intervention and so, I contacted on-call hospitalist and reviewed need for admission. He agreed need for admission and accepted patient under his care I updated patient on proposed plan of care and initially she was not amenable. She wanted to go home as she reports having kids at home and wanting to go smoke. Stating she will leave if she cannot smoke before admission Patient verbally deescalated, eventually amenable for plan of admission. All questions and concerns addressed prior to admission Critical Care Time This patient required critical care. Due to the fact that the patient required a significant amount of one on one physician - patient contact time, ordering and review of studies, arranging urgent treatment with development of a management plan, evaluation of patients response to treatment with frequent reassessments, and discussions with other providers this patient required 40 minutes of critical care time. Critical care time was indicated due to the inherent instability and/or potential for instability in this patient. The critical care time that is allocated to this patient is above and beyond any time spent on any other billable procedures performed on this patient. Dragon Disclaimer Dragon Disclaimer This electronic medical record was generated, in whole or in part, using a voice recognition dictation system. Departure Departure: Impression: Primary Impression: UTI (urinary tract infection) Additional Impressions: Sepsis History of CVA (cerebrovascular accident) Tobacco dependence Disposition: ADMITTED INPATIENT Admitting Physician: Ben Delgado Condition: STABLE Referrals: ROCIO SANFORD (PCP) Problem Qualifiers KALEY MARES DO Feb 22, 2021 08:14
[2021-02-22] MEDS ORDERED: IV NORMAL SALINE 1,000ML 1,000 ML IV ONE ×2 (08:15→08:45)
[2021-02-22 08:25] LABS: BASO # 0.1 x10^3/uL (0.0-0.2); BASO % 0 % (0-3); EOS # 0.1 x10^3/uL (0.0-0.7); EOS % 0 % (0-3); HEMATOCRIT 35.6 % (36.0-47.0); HEMOGLOBIN 11.7 g/dL (12.0-15.5); LYMPH # 1.2 x10^3/uL (1.0-4.8); LYMPH % 4 % (24-48); MEAN CORPUSCULAR HEMOGLOBIN 30 pg (25-35); MEAN CORPUSCULAR HGB CONC 33 g/dL (31-37); MEAN CORPUSCULAR VOLUME 91 fL (79-100); MONO # 2.3 x10^3/uL (0.0-1.1); MONO % 8 % (0-9); NEUT % 88 % (31-73); PLATELET COUNT 357 x10^3/uL (140-400); RED CELL DISTRIBUTION WIDTH 14.5 % (11.5-14.5); WHITE BLOOD COUNT 30.6 x10^3/uL (4.0-11.0)
[2021-02-22 08:37] LABS: ALBUMIN 2.7 g/dL (3.4-5.0); ALBUMIN/GLOBULIN RATIO 0.7 (1.0-1.7); CALCIUM 8.5 mg/dL (8.5-10.1); CREATININE 1.9 mg/dL (0.6-1.0); GFR 27.4; POTASSIUM 4.1 mmol/L (3.5-5.1); TOTAL BILIRUBIN 0.6 mg/dL (0.2-1.0); TOTAL PROTEIN 6.6 g/dL (6.4-8.2)
--- NOTE | 2021-02-22 08:51 | EKG ---
[address] [address] Test Date: 2021-02-22 Test Time: 08:19:14 Pat Name: MILLIE GUZMÁN Department: Room: Gender: F Affirmative Action Officer: : 1965 Requested By: KALEY MARES Order Number: [id number] Reading MD: Measurements Intervals Douglas Rate: 97 P: 90 WV: 158 QRS: 80 QRSD: 98 T: 59 QT: 356 QTc: 456 Interpretive Statements SINUS RHYTHM OTHERWISE NORMAL ECG RI6.02 No previous ECG available for comparison
--- NOTE | 2021-02-22 09:12 | RAD ---
INDICATION: Reason: cough / Spl. Instructions: / History: COMPARISON: June 25, 2020 FINDINGS: Single view of chest obtained. Mild linear opacities at the left lung base. Cardiac silhouette is similar to prior. Calcific atherosclerosis. 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 IMPRESSION: * Linear opacity at the left lung base which can be seen with atelectasis or scarring. Electronically signed by: Jon Kline MD (02/22/2021 9:09 AM) [id number]
[2021-02-22] MEDS ORDERED: IV NORMAL SALINE 500ML 500 ML IV ONE (09:15)
--- NOTE | 2021-02-22 09:36 | RAD ---
Exam Date: 02/22/2021 9:[address] ABDOMEN+PELVIS WO Indication: Reason: ruq pain / Spl. Instructions: / History: . TECHNIQUE: CT examination of the abdomen and pelvis was performed without oral or intravenous contra st. One or more of the following dose reduction techniques were utilized: *Automated exposure control (AEC) *Adjustment of mA and/or kV according to patient size *Use of iterative reconstruction technique *CT scan done according to ALARA, or ALARA/IMAGE GENTLY FINDINGS: There are patchy infiltrates and/or atelectasis in the lung bases bilaterally, right worse than left. The liver, gallbladder, spleen, pancreas, and adrenal glands are normal. Mild perinephric stranding around the kidneys bilaterally is nonspecific. The kidneys are otherwise n ormal bilaterally. No hydronephrosis or hydroureter is seen. No urinary tract calculi are seen. Ur inary bladder is normal in appearance. There is no bowel obstruction or inflammation. The appendix is normal. Moderate atherosclerotic calcifications are seen. No lymphadenopathy or ascites is seen. Degenerative changes are seen in the spine. IMPRESSION: Mild perinephric stranding around the kidneys is nonspecific. This can be seen with pyelonephritis bu t can also be seen in asymptomatic patients. Correlate clinically. Otherwise normal appearance of the kidneys and bladder. No hydronephrosis or hydroureter. No urinar y tract calculi. Electronically signed by: Venkata Ochoa MD (02/22/2021 9:34 AM) [id number]
[2021-02-22 09:51] LABS: BACTERIA,URINE FEW /HPF (0-FEW); BILIRUBIN,URINE MOD (NEG); CLARITY,URINE HAZY; COLOR,URINE YELLOW; GLUCOSE,URINE NEG (NEG); GRANULAR CASTS,URINE FEW /HPF; NITRITE,URINE POS (NEG); RBC,URINE RARE /HPF (0-2); WBC,URINE >40 /HPF (0-4)
[2021-02-22] MEDS ORDERED: NICOTINE 21MG PATCH. TD ONE (10:15)
[2021-02-22] MEDS ORDERED: ONDANSETRON PF 4 MG/2 ML VIAL. IVP PRN (10:30)
[2021-02-22 11:01] VITALS: BP 111/71
--- NOTE | 2021-02-22 11:02 | HP ---
ADMIT DATE: 02/22/2021 ATTENDING PHYSICIAN: Dr. Delgado. CHIEF COMPLAINT: Nonspecific abdominal pain and low blood pressure. HISTORY OF PRESENT ILLNESS: The patient is a 56-year-old female with some underlying medical issues. She has a 2-day history of nausea, not feeling well. No vomiting or diarrhea, but in the ED, she had some suprapubic pain. Urinalysis was abnormal. Cultures have been sent. She was clinically dehydrated with low blood pressure and she was started on sepsis protocol with fluid resuscitation and was better. By the time I saw her, her skin was warm and dry. She was perfusing. Blood pressure is still marginal 90 mmHg. She is admitted then with urinary tract infection and dehydration. PAST MEDICAL HISTORY: Significant for stroke about months ago. She had some residual memory issues. Her speech issues suggesting involvement of the left brain Broca's area has improved and she is speaking adequately without any dysarthria. She also has essential hypertension, chronic low back pain. CURRENT MEDICATIONS: Reviewed. She was on tizanidine, lisinopril, hydrocodone, Ultram p.r.n., and olanzapine. ALLERGIES: SHE HAS ALLERGIES TO PENICILLIN, WHICH CAUSES A RASH. SOCIAL HISTORY: She continues to smoke heavily, 1-2 packs of cigarettes daily despite admonishing from her primary care provider. She does not drink alcohol to excess. FAMILY HISTORY: Noncontributory. REVIEW OF SYSTEMS: Significant for the generalized nauseated. There is some mild upper quadrant pain. She does have an increased gallbladder suggesting hydrops, although no other symptoms are identified. There is no biliary tree obstruction, no stones identified. The rest of the detailed review of systems as the patient turned to be negative. PHYSICAL EXAMINATION: GENERAL: When I saw her, this is a pleasant, middle-aged female. INITIAL VITAL SIGNS: In the ED showed a blood pressure 79/41 mmHg. By the time I saw her, she was improved to 90 mmHg. Tachycardia has improved from 110 per minute down to 85. She was afebrile, oxygen saturation 97% on room air. HEENT: Head is without trauma. Pupils are reactive. Sclerae nonicteric. Oropharynx is clear. NECK: Supple, no bruits identified. LUNGS: Good breath sounds. Minimal wheezing in the upper airways. CARDIOVASCULAR: Showed regular heart tones. No gallops. ABDOMEN: Soft. Minimal guarding, no rebound tenderness and bowel sounds are hypoactive. EXTREMITIES: Show no cyanosis or edema. NEUROLOGIC: Focally intact. No deficits. PERTINENT LABORATORY STUDIES: The hemoglobin is 11.7 gram with a white count is 30,600. Chemistry panel: Creatinine is 1.9 mg/dL, BUN 25 suggesting prerenal azotemia. Troponin was negative. Transaminases are normal. Urine and blood cultures are pending at this time. The chest x-ray on admission was unremarkable. There is some linear opacity in the left base, which is consistent with atelectasis. CT of the abdomen was done. It showed evidence of mild perinephric stranding around the kidneys, nonspecific, otherwise unremarkable kidneys, ureters, and bladder, patchy infiltrates and atelectasis in the lung bases. The interpretation of the liver and gallbladder was actually normal. ASSESSMENT: 1. This 56-year-old female has a urinary tract infection. 2. Possible urosepsis as manifested by sepsis syndrome with hypotension. 3. Dehydration. 4. Chronic obstructive pulmonary disease. 5. Old cerebrovascular accident with minimal residual deficits. PLAN: 1. Admit to the inpatient unit telemetry. 2. IV antibiotics as ordered. 3. Pending cultures. 4. Nicotine patch. 5. We will hold her lisinopril for now. 6. Diet as tolerated. WILLY DR: Alena TID: [id number] CC: LORETTA PERDUE
[2021-02-22] MEDS ORDERED: TRAM50TA PO (11:19)
[2021-02-22] MEDS ORDERED: LISI-517 PO (11:19)
[2021-02-22] MEDS ORDERED: LIPITOR80 MG PO (11:19)
[2021-02-22] MEDS ORDERED: TIZA4TAB2 PO (11:19)
[2021-02-22] MEDS: IV NORMAL SALINE 1,000ML 1,000 ML IV SCH (11:30)
[2021-02-22] MEDS ORDERED: LORazepam 0.5 MG TABLET PO PRN (11:30)
[2021-02-22 11:44] LABS: % BANDS 10 % (0-9); % LYMPHS 4 % (24-48); % MONOS 3 % (0-10); % SEGS 83 % (35-66); BURR CELLS PRESENT; PLT ESTIMATE ADEQUATE (ADEQUATE)
[2021-02-22 11:45] LABS: POLYCHROMASIA PRESENT
[2021-02-22 15:39] VITALS: BP 96/67
[2021-02-22] MEDS: traMADol 50 MG TABLET PO PRN ×2 (16:03→23:37)
[2021-02-22 19:08] VITALS: BP 99/66
[2021-02-22 22:55] VITALS: BP 94/61
[2021-02-23 05:56] VITALS: BP 92/58
[2021-02-23] MEDS: traMADol 50 MG TABLET PO PRN ×3 (06:20→18:34)
[2021-02-23] MEDS: IV NORMAL SALINE 1,000ML 1,000 ML IV SCH ×2 (06:22→14:29)
[2021-02-23 07:07] LABS: HEMATOCRIT 30.4 % (36.0-47.0); HEMOGLOBIN 9.8 g/dL (12.0-15.5); RED BLOOD COUNT 3.32 x10^6/uL (3.50-5.40); WHITE BLOOD COUNT 23.8 x10^3/uL (4.0-11.0)
[2021-02-23 07:22] LABS: ALBUMIN 1.9 g/dL (3.4-5.0); ALBUMIN/GLOBULIN RATIO 0.5 (1.0-1.7); CALCIUM 7.8 mg/dL (8.5-10.1); CREATININE 1.7 mg/dL (0.6-1.0); GFR 31.2; POTASSIUM 3.5 mmol/L (3.5-5.1); TOTAL BILIRUBIN 0.6 mg/dL (0.2-1.0); TOTAL PROTEIN 6.1 g/dL (6.4-8.2)
--- NOTE | 2021-02-23 08:31 | PN ---
DATE: 02/23/2021 ATTENDING PHYSICIAN: Dr. Delgado. SUBJECTIVE: She is feeling a little better, still weak. She has no insight as to why she is ill. OBJECTIVE FINDINGS: VITAL SIGNS: Her blood pressure this morning is 92/58 mmHg, pulse is 110 and regular. She is afebrile. Oxygen saturation 94% on room air. HEENT: Head is without trauma. Pupils are reactive. Sclerae nonicteric. The oropharynx is clear. NECK: Supple, no bruits identified. LUNGS: Otherwise clear. CARDIOVASCULAR: Showed regular heart tones, tachycardic rhythm. No gallops. ABDOMEN: Soft, scaphoid, nontender, no organomegaly. EXTREMITIES: Without edema. NEUROLOGIC: Focally intact. Speech is fluent. She has no withdrawal symptoms. LABORATORY STUDIES: Her creatinine today is down from 1.9 to 1.7 mg/dL. Electrolytes are within range. Hemoglobin showed a decline from hemodilution down to 9.8 g/dL. The white count is down from 30,000-23,800. Cultures of blood and urine are pending at this time. ASSESSMENT: 1. A 56-year-old female with sepsis syndrome. 2. Probable urinary tract source. 3. Hypotension related to sepsis. 4. Dehydration with chronic kidney disease stage 3, improved. 5. Chronic obstructive pulmonary disease. 6. History of old stroke. PLAN: 1. Continue IV hydration. 2. Continue broad spectrum antibiotics. 3. Await cultures. 4. Serial chemistries. 5. Leukemoid reaction is improving related to infection. 6. Nicotine patch. 7. Strong encouragement to quit smoking. Whether she will remains to be seen. BETHANIE/CASSANDRA DR: BETHANIE/joseph TID: [id number]
[2021-02-23] MEDS: NICOTINE 21MG PATCH. TD SCH (09:08)
[2021-02-23] MEDS: LACTOBACILLUS RHAMNOSUS GG 1 CAPSULE. PO SCH ×2 (09:08→20:30)
[2021-02-23 11:27] VITALS: BP 104/72
[2021-02-23 14:54] VITALS: BP 116/79
[2021-02-23 19:15] VITALS: BP 124/82
[2021-02-23] MEDS ORDERED: ACETAMINOPHEN 500 MG TABLET PO ONE (20:00)
[2021-02-23 22:56] VITALS: BP 107/69
[2021-02-24] MEDS: traMADol 50 MG TABLET PO PRN ×4 (00:28→21:21)
[2021-02-24] MEDS: IV NORMAL SALINE 1,000ML 1,000 ML IV SCH ×3 (03:41→17:05)
[2021-02-24 05:27] VITALS: BP 108/70
[2021-02-24 06:36] LABS: HEMATOCRIT 30.4 % (36.0-47.0); RED BLOOD COUNT 3.36 x10^6/uL (3.50-5.40); RED CELL DISTRIBUTION WIDTH 15.4 % (11.5-14.5); WHITE BLOOD COUNT 15.9 x10^3/uL (4.0-11.0)
--- NOTE | 2021-02-24 08:16 | PN ---
DATE: 02/24/2021 ATTENDING PHYSICIAN: Dr. Delgado. SUBJECTIVE: Feeling better, wants to go home. OBJECTIVE FINDINGS: VITAL SIGNS: Blood pressure is improved. It is up to 124/82. Her pulse is down to 94 and regular. Her temperature, she had a T-max of 102.5 yesterday. Today, she is afebrile at 98.8, oxygen saturation 95% on room air. HEENT: Head is without trauma. Pupils are reactive. Sclerae nonicteric. Oropharynx clear. NECK: Supple. No stridor. LUNGS: Otherwise clear. CARDIOVASCULAR: Showed regular heart tones. No gallops. ABDOMEN: Soft. There is no guarding or rebound tenderness. She has normoactive bowel sounds. EXTREMITIES: Without edema. LABORATORY DATA: Her CBC this morning, the white count is down from 30,000 to 23,800 yesterday to 15,900. Her chemistry panel, creatinine is improved from 1.9 to 1.7 to 1.6 mg/dL today. Her anion gap is 15. Potassium 3.5 mEq. Sodium 137. Four of 4 blood cultures were positive for E. coli. The ID is done and sensitivity is still pending at this time. ASSESSMENT: 1. A 56-year-old female with sepsis syndrome due to Escherichia coli. 2. Urinary tract infection as the source of infection. 3. Hypotension, improving. 4. Leukemoid reaction, improving. 5. History of essential hypertension. Blood pressure meds held. 6. Chronic obstructive pulmonary disease. 7. Strong tobacco addiction. PLAN: 1. Continue current antibiotics as ordered. She is getting broad-spectrum Rocephin. 2. Await results of sensitivity of E. coli identified on blood cultures. 3. Continue IV hydration. 4. Blood pressure meds held. 5. Tentative discharge plans for perhaps tomorrow. She will need probably 2 weeks' worth of antibiotics; however, she does not need to be in the hospital for this. She is clinically stable at this time. RANI DR: BETHANIE/joseph TID: [id number] CC: LORETTA PERDUE
[2021-02-24] MEDS: LACTOBACILLUS RHAMNOSUS GG 1 CAPSULE. PO SCH ×2 (08:38→21:20)
[2021-02-24] MEDS: NICOTINE 21MG PATCH. TD SCH (08:39)
[2021-02-24] MEDS: ACETAMINOPHEN 500 MG TABLET PO PRN ×3 (08:42→21:21)
[2021-02-24 11:09] VITALS: BP 94/65
[2021-02-24 15:50] VITALS: BP 107/71
[2021-02-24 19:04] VITALS: BP 109/70
[2021-02-24 23:05] VITALS: BP 133/88
[2021-02-24] MEDS ORDERED: ONDANSETRON PF 4 MG/2 ML VIAL. IVP PRN (23:30)
[2021-02-25 05:16] VITALS: BP 103/72
[2021-02-25] MEDS: IV NORMAL SALINE 1,000ML 1,000 ML IV SCH (06:01)
[2021-02-25] MEDS: ACETAMINOPHEN 500 MG TABLET PO PRN (06:03)
[2021-02-25] MEDS: traMADol 50 MG TABLET PO PRN (06:03)
[2021-02-25 06:26] LABS: HEMATOCRIT 30.5 % (36.0-47.0); HEMOGLOBIN 9.7 g/dL (12.0-15.5); RED BLOOD COUNT 3.34 x10^6/uL (3.50-5.40); WHITE BLOOD COUNT 14.7 x10^3/uL (4.0-11.0)
[2021-02-25 06:38] LABS: ALBUMIN 1.6 g/dL (3.4-5.0); ALBUMIN/GLOBULIN RATIO 0.4 (1.0-1.7); CALCIUM 8.5 mg/dL (8.5-10.1); CREATININE 1.3 mg/dL (0.6-1.0); GFR 42.5; POTASSIUM 3.3 mmol/L (3.5-5.1); TOTAL BILIRUBIN 0.3 mg/dL (0.2-1.0); TOTAL PROTEIN 6.1 g/dL (6.4-8.2)
[2021-02-25] MEDS: NICOTINE 21MG PATCH. TD SCH ×2 (08:05→08:14)
[2021-02-25] MEDS: LACTOBACILLUS RHAMNOSUS GG 1 CAPSULE. PO SCH (08:05)
--- NOTE | 2021-02-25 10:09 | DS ---
DATE OF DISCHARGE: 02/25/2021 ATTENDING PHYSICIAN: Dr. Delgado FINAL DISCHARGE DIAGNOSES: 1. Sepsis syndrome. 2. Escherichia coli urinary tract infection. 3. Hypotension related to sepsis, resolved. 4. Essential hypertension, now normotensive. 5. Leukemoid reaction, improving. 6. Essential hypertension. 7. Chronic obstructive pulmonary disease. 8. Continued tobacco use and strong tobacco addiction. HISTORY AND PHYSICAL: The patient is a 56-year-old female admitted through the ED with weakness, fevers and signs of infection. Clinically, she was septic. She was given fluid resuscitation, cultures drawn and started on antibiotics. PHYSICAL EXAMINATION: Please see the dictated note. PERTINENT LABORATORY AND X-RAY STUDIES: Admission hemoglobin was 11.7 grams with hydration it became diluted down to 10.0 g/dL. White count initially was 30,600, repeat in the next day was 23,800, the third day was 15,900 and fourth day was down to 14,700. Her serum creatinine level was 1.7 mg/dL on admission, repeated it was down to 1.3 mg/dL. Sodium was 137 mEq, potassium 3.5. Transaminases were unremarkable and cardiac enzymes were negative for coronary ischemia. Her microbiology showed positive blood and urine cultures, both growing Escherichia coli, most likely sensitive. Unfortunately, the sensitivity panel was still pending. She did respond to intravenous Rocephin. COURSE IN THE HOSPITAL: The patient was admitted with sepsis syndrome. She was given fluid resuscitation. Because of the low blood pressure, we held her antihypertensives. She did well. Some mild nausea was encountered. She received 4 full days of intravenous antibiotics. On the , she was up and about. She was afebrile. Vital signs were stable and blood pressure improved. At this time, I recommended 10 more days of cephalexin 500 mg p.o. t.i.d. until it is complete, in addition Ultram 50 mg p.o. q. 6 hours p.r.n. pain. Other home meds include the following: She should continue her alprazolam p.r.n., Lipitor 80 mg daily, Soma p.r.n. muscle spasm, olanzapine 10 mg at bedtime. For now, we stopped her hydrocodone, lisinopril and prednisone and tizanidine doses. I suggest a followup visit with ____ in 2 weeks' time. I gave her a work release through and including 03/04/2021. The patient was then discharged from our hospital in stable condition with explicit instructions for followup care. Total discharge time spent 39 minutes. BETHANIE/MIKI/CHIKIS DR: BETHANIE/joseph TID: [id number] CC: ROC[facility] SANFORD
== END 2021-02-25 08:59 | disposition home or self-care (01) | DRG 872 ==
LOC: ER 07:42 → 1 SOUTH 10:30
PROVIDERS: ADMIT Hospitalist; ATTEND Hospitalist
DX: A41.9 Sepsis, unspecified organism (principal); N39.0 Urinary tract infection, site not specified; B96.20 Unspecified Escherichia coli [E. coli] as the cause of diseases classified elsewhere; D72.823 Leukemoid reaction; J44.9 Chronic obstructive pulmonary disease, unspecified; Z79.899 Other long term (current) drug therapy; N18.30 Chronic kidney disease, stage 3 unspecified; I12.9 Hypertensive chronic kidney disease with stage 1 through stage 4 chronic kidney disease, or unspecified chronic kidney disease; Z86.73 Personal history of transient ischemic attack (TIA), and cerebral infarction without residual deficits; F17.210 Nicotine dependence, cigarettes, uncomplicated; E86.0 Dehydration; G89.29 Other chronic pain; M54.5 Low back pain; Z88.0 Allergy status to penicillin
CPT/HCPCS: 36415; 71045; 74176; 80053; 81001; 83605; 84484; 85007; 85025; 85027; 87015; 87040; 87077; 87086; 87186; 87205; 93005; 96361; 96365; J0696; J2405; J7040; 99291-25; J7030

== ENCOUNTER 2021-05-23 20:06 | Emergency (ER) | payer BC ==
[~2021-05-23] VITALS: Ht 170.2 cm; Wt 76.9 kg
[~2021-05-23 20:06] MED LIST changes: +LIPITOR80 MG PO; +LISI-517 PO; +OLAN10TA69 PO; -OLAN10TA9 PO; +TIZA4TAB2 PO; +TRAM50TA PO
[2021-05-23 20:16] VITALS: BP 81/49
[2021-05-23] MEDS ORDERED: BUTALB/APAP/CAFEIN 50/325/40MG TABLET. PO PRN (20:45)
[2021-05-23] MEDS ORDERED: diphenhydrAMINE 50 MG/ML VIAL ONE (20:50)
[2021-05-23] MEDS ORDERED: ONDANSETRON PF 4 MG/2 ML VIAL. ONE (20:50)
--- NOTE | 2021-05-23 20:50 | PHYS DOC ---
Past History Past Medical History: Asthma, Hypertension, Stroke (MELANY NEWMAN APRN) Past Surgical History: No Surgical History (MELANY NEWMAN APRN) Smoking: Cigarettes Alcohol Use: None Drug Use: None, Benzodiazepine, Cocaine, Opiates (MELANY NEWMAN APRN) General Adult EDM: Chief Complaint: HEADACHE HPI: HPI: Patient is a 56-year-old female who presents with headache. Patient states that started at 9:00 this morning. Patient states that she has had migraine headaches for the last 9 months almost daily. Patient states that she has not taken anything for pain. Patient has discussed this with her PCP and prescribed tramadol. Denies nausea/vomiting. Denies worst headache of her life. Denies thunderclap. These migraines are chronic for her. (MELANY NEWMAN APRN) Review of Systems: Review of Systems: ROS At least 10 ROS systems have been reviewed and are negative except as documented in the HPI. General: Negative except as outlined in HPI above. Skin: Negative except as outlined in HPI above. HEENT: Negative except as outlined in HPI above. Neck: Negative except as outlined in HPI above. Respiratory: Negative except as outlined in HPI above.. Cardiovascular: Negative except as outlined in HPI above. Abdomen: Negative except as outlined in HPI above. : Negative except as outlined in HPI above. Back/MSK: Negative except as outlined in HPI above. Neuro: Negative except as outlined in HPI above. Psych: Negative except as outlined in HPI above. (MELANY NEWMAN APRN) Current Medications: Current Meds: Current Medications Medications (Trade) Dose Ordered Sig/Sara Start Time Stop Time Status Last Admin Dose Admin Acetaminophen/ Butalbital/ Caffeine (Fioricet) 1 tab PRN Q6HRS PRN 05/23/21 20:45 UNV Dexamethasone Sodium Phosphate (Decadron) 10 mg 1X ONCE 05/23/21 20:45 05/23/21 20:46 UNV Ondansetron HCl (Zofran Odt) 4 mg 1X ONCE 05/23/21 20:45 05/23/21 20:46 UNV (MELANY NEWMAN APRN) Allergies: Allergies: Allergies Coded Allergies Type Severity Reaction Last Updated Verified Penicillins Allergy Severe Rash 06/25/20 Yes (MELANY NEWMAN APRN) Physical Exam: PE: Constitutional: Well developed, well nourished, no acute distress, non-toxic appearance. [] HENT: Normocephalic, atraumatic, bilateral external ears normal, oropharynx moist, no oral exudates, nose normal. [] Eyes: PERRLA, EOMI, conjunctiva normal, no discharge. [] Neck: Normal range of motion, no tenderness, supple, no stridor. [] Cardiovascular:Heart rate regular rhythm, no murmur [] Lungs & Thorax: Bilateral breath sounds clear to auscultation [] Abdomen: Bowel sounds normal, soft, no tenderness, no masses, no pulsatile masses. [] Skin: Warm, dry, no erythema, no rash. [] Back: No tenderness, no CVA tenderness. [] Extremities: No tenderness, no cyanosis, no clubbing, ROM intact, no edema. [] Neurologic: Alert and oriented X 3, normal motor function, normal sensory function, no focal deficits noted. [] Psychologic: Affect normal, judgement normal, mood normal. [] (MELANY NEWMAN APRN) Current Patient Data: Vital Signs: Vital Signs Date Time Temp Pulse Resp B/P (MAP) Pulse Ox O2 Delivery O2 Flow Rate FiO2 05/23/21 20:16 98.6 84 16 81/49 (60) 98 Room Air (MELANY NEWMAN APRN) EKG: EKG: [] (MELANY NEWMAN APRN) Radiology/Procedures: Radiology/Procedures: [] (MELANY NEWMAN APRN) Heart Score: C/O Chest Pain: No Risk Factors: Risk Factors: DM, Current or recent (<one month) smoker, HTN, HLP, family history of CAD, obesity. Risk Scores: Score 0 - 3: 2.5% MACE over next 6 weeks - Discharge Home Score 4 - 6: 20.3% MACE over next 6 weeks - Admit for Clinical Observation Score 7 - 10: 72.7% MACE over next 6 weeks - Early Invasive Strategies (MELANY NEWMAN APRN) Course & Med Decision Making: Course & Med Decision Making Pertinent Labs and Imaging studies reviewed. (See chart for details) [] 56-year-old female who presents with headache. Patient states that she gets migraine he gets headaches daily. Patient is currently seeing her PCP for these migraines. Patient denies visual changes. Denies thunderclap. Denies worst headache of her life. Patient states that these headaches are same as normal for her. patients blood pressure was 80/49. Patient currently takes lisinopril for her blood pressure. Patient's blood pressure is chronically low and has been consistently in the 80s for past visits. Patient given IV Benadryl, Toradol, Zofran. Patient is sitting in the room watching TV and does not appear to be in any distress. (MELANY NEWMAN APRN) Dragon Disclaimer: Dragon Disclaimer: This electronic medical record was generated, in whole or in part, using a voice recognition dictation system. (MELANY NEWMAN APRN) Departure Departure: Impression: Primary Impression: Migraine Qualified Codes: G43.009 - Migraine without aura, not intractable, without status migrainosus Disposition: HOME / SELF CARE / HOMELESS Condition: STABLE Referrals: ROCIO SANFORD (PCP) Patient Instructions: Migraine Headache Additional Instructions: You are seen in the emergency room for a migraine headache. You were given Benadryl, Toradol, Zofran to help with symptoms. Please call your PCP make a follow-up appointment for further management for chronic migraines. Return emergency room if you have worsening symptoms or concerns such as visual changes, uncontrollable pain. Uncontrollable vomiting. EMERGENCY DEPARTMENT GENERAL DISCHARGE INSTRUCTIONS Thank you for coming to [facility] (ED) today and trusting us with you care. We trust that you had a positivie experience in our Emergency Department. If you wish to speak to the department management, you may call the director at [phone]. YOUR FOLLOW UP INSTRUCTIONS ARE FOLLOWS: 1. Do you have a private Doctor? If you do not have a private doctor, please ask for a resource list of physicians or clinics that may be able to assist you with follow up care. 2. The Emergency Physician has interpreted your x-rays. The X-Ray specialist will also review them. If there is a change in the findings, you will be notified in 48 hours when at all possible. 3. A lab test or culture has been done, your results will be reviewed and you will be notified if you need a change in treatment. ADDITIONAL INSTRUCTIONS AND INFORMATION: 1. Your care today has been supervised by a physician who is specially trained in emergency care. Many problems require more than one evaluation for a complete diagnosis and treatment. We recommend that you schedule your follow up appointment as recommended to ensure complete treatment of you illness or injury. If you are unable to obtain follow up care and continue to have a problem, or if your condition worsens, we recommend that you return to the ED. 2. We are not able to safely determine your condition over the phone nor are we able to give sound medical advice over the phone. For these safety reasons, if you call for medical advice we will ask you to come to the ED for further evaluation. 3. If you have any questions regarding these discharge instructions please call the ED at [phone]. SAFETY INFORMATION: In the interest of safety, wellness, and injury prevention; we encourage you to wear your sealbelt, if you smoke; quite smoking, and we encourage family to use a protective helmet for bicycling and other sporting events that present an increased risk for head injury. IF YOUR SYMPTOMS WORSEN OR NEW SYMPTOMS DEVELOP, OR YOU HAVE CONCERNS ABOUT YOUR CONDITION; OR IF YOUR CONDITION WORSENS WHILE YOU ARE WAITING FOR YOUR FOLLOW UP APPO INTMENT; EITHER CONTACT YOUR PRIMARY CARE DOCTOR, THE PHYSICIAN WHOSE NAME AND NUMBER YOU WERE GIVEN, OR RETURN TO THE ED IMMEDIATELY. Attending Signature Attending Signature I have reviewed the PA/PHYSICIAN [facility]'s note and plan of care. I was available for consultation as needed during the patient's visit in the emergency department. I agree with the clinical impression, plan, and disposition. (SHIV DAVIS DO) MELANY NEWMAN APRN May 23, 2021 20:50 SHIV DAVIS DO May 23, 2021 21:34
[2021-05-23] MEDS ORDERED: KETOROLAC 15 MG/ML VIAL. ONE (20:51)
[2021-05-23] MEDS ORDERED: ONDANSETRON ODT 4 MG TAB.RAPDIS PO ONE (21:00)
[2021-05-23] MEDS ORDERED: diphenhydrAMINE 50 MG/ML VIAL IVP ONE (21:00)
[2021-05-23] MEDS ORDERED: ONDANSETRON PF 4 MG/2 ML VIAL. IVP ONE (21:00)
[2021-05-23] MEDS ORDERED: DEXAMETHASONE SOD PHOS 10 MG/ML VIAL. PO ONE (21:00)
[2021-05-23] MEDS ORDERED: KETOROLAC 15 MG/ML VIAL. IVP ONE (21:30)
== END 2021-05-23 21:08 | disposition home or self-care (01) ==
LOC: ER 20:06
DX: G43.009 Migraine without aura, not intractable, without status migrainosus (principal); J45.909 Unspecified asthma, uncomplicated; I10 Essential (primary) hypertension; F17.210 Nicotine dependence, cigarettes, uncomplicated; Z86.73 Personal history of transient ischemic attack (TIA), and cerebral infarction without residual deficits; Z88.0 Allergy status to penicillin
CPT/HCPCS: 96374; 96375; 99284; J1200; J1885; J2405

== ENCOUNTER 2021-05-26 21:54 | Emergency (ER) | payer BC ==
[~2021-05-26] VITALS: Ht 170.2 cm; Wt 76.9 kg
--- NOTE | 2021-05-26 23:38 | PHYS DOC ---
Past History Past Medical History: Anxiety, Asthma, Bronchitis, Constipation, COPD, GERD, Hypertension, Kidney Infection, Migraines, Stroke, UTI Past Surgical History: No Surgical History Smoking: Cigarettes Alcohol Use: None Drug Use: None, Benzodiazepine, Cocaine, Opiates General Adult EDM: Chief Complaint: HEADACHE HPI: HPI: ".. I am having bad abdomen pain.. and it has caused my migraine to come back... " I was here the other night for it... " The Fire ball was drinking to night... has not relieved the pain..probably made everything worse... " " Margret been having this gut pain now for 4 months... " I am to get a ultrasound time this next week.... My doctor is set it up." " I ve always had migraines.." " They are worse when I am under stress... like this gut pain.." Patient is a 56 year old female who presents with above complaints of abdomen pain and migraine. Patient states she rates her abdomen pain as a primary problem of presenting. Localizes pain to epigastric and mid abdomen. Pain is gotten worse tonight with intake of ' Fireball ".. and that has made her migraines to return. Patient denies any falls or trauma to the head. No recent travel. No specific ill contacts. No history of bad food intake. Has had significant intake of fireball alcohol today. Patient has completed her first, Moderna vaccination. Patient normally follows with [facility] for care. Patient has past medical history of asthma, hypertension, TIAs, CVAs, tobacco and alcohol abuse, polysubstance abuse with benzodiazepine, cocaine, opiate, and chronic abdomen pain.. Patient also has a history of sepsis admission in January of this year, UTI, hypotension related to sepsis, renal insufficiency. Patient on occasion has exhibited possible narcotic seeking behaviors and medical noncompliance. Review of Systems: Review of Systems: Constitutional: Denies fever or chills Eyes: Denies change in visual acuity HENT: Denies nasal congestion or sore throat Respiratory: Denies cough or shortness of breath Cardiovascular: Denies chest pain or edema GI: Complains of chronic abdominal pain, nausea. Denies, vomiting, bloody stools or diarrhea : Denies dysuria Musculoskeletal: Denies back pain or joint pain Integument: Denies rash Neurologic: Complains of headache,. Denies focal weakness or sensory changes Endocrine: Denies polyuria or polydipsia Lymphatic: Denies swollen glands Psychiatric: Denies depression or anxiety Family History: Family History: Noncontributory to presentation Current Medications: Current Meds: See nursing for home meds Allergies: Allergies: Allergies Coded Allergies Type Severity Reaction Last Updated Verified Penicillins Allergy Severe Rash 06/25/20 Yes Physical Exam: PE: Constitutional: Moderate acute distress, in intoxicated in appearance. [] HENT: Normocephalic, atraumatic, bilateral external ears normal, oropharynx moist, no oral exudates, nose normal. [] Eyes: PERRLA, EOMI, conjunctiva injected, no discharge. [] Neck: Normal range of motion, no tenderness, supple, no stridor. Trachea m idline Cardiovascular:Heart rate regular rhythm, no murmur [] bedside monitor shows a sinus rhythm in the 80s Lungs & Thorax: Bilateral breath sounds equal apex with scattered wheezes on auscultation [] Abdomen: Bowel sounds decreased, soft, generalized tenderness, no masses, no pulsatile masses. No focal areas of rebound currently. Abdomen distended. Skin: Warm, dry, no erythema, no rash. Poor turgor Back: No tenderness, no CVA tenderness. [] Extremities: No tenderness, no cyanosis, no clubbing, ROM intact, no edema. No cording appreciated. No psoas sign. Neurologic: Alert and oriented X 3, moves all extremities on request, has distal sensory, some decreased plantar sensation,, no focal deficits noted. Is discoordinated and has had a staggering gait.-Note this cleared as of alcohol level dropped. DTRs +2 patella and brachial. Patent Engineer equal. Right-hand dom inant. Patient uncooperative with NIS. Demanded to be left alone to sleep and demanded pain meds for her abdomen pain. Psychologic: Affect anxious, judgement initially impaired because of intoxication,, mood normal. [] Current Patient Data: Labs: Labs still not crossing over. Review of significant labs white count 15.4 hemog lobin stable at 13.2 platelets 350 sodium 142 potassium 4 oh creatinine 1.4 BUN 25 glucose 94. Troponin was less than 0.014. Alcohol at 112 Vital Signs: Vital Signs Date Time Temp Pulse Resp B/P (MAP) Pulse Ox O2 Delivery O2 Flow Rate FiO2 05/26/21 23:13 98.1 84 16 101/55 (70) 98 Room Air EKG: EKG: My interpretation EKG shows a sinus rhythm at 81 bpm. No acute morphology. Time of EKG is 101 hours [] Radiology/Procedures: Radiology/Procedures: [][address] [address] IMAGING REPORT Signed PATIENT: MILLIE GUZMÁN ACCOUNT: [id number] : 1965 LOCATION: ER AGE: 56 SEX: F EXAM STATUS: REG ER ORD. PHYSICIAN: RAIN BARROS MD REASON: pain PROCEDURE: ACUTE ABDOMEN SERIES EXAM: Frontal view of the chest, AP views of the abdomen in upright and supine positions. CLINICAL INDICATION: Reason: pain / Spl. Instructions: / History: COMPARISON: None. FINDINGS and IMPRESSION: The heart is not enlarged. Mediastinal and hilar contours are normal. No focal parenchymal airspace opacity. No pleural effusion or pneumothorax. No abnormal small or large bowel dilatation. Moderate colonic stool content. No abnormal soft tissue mass effect. No suspicious calcifications are seen. No free intraperitoneal gas. Electronically signed by: James Castellanos MD (05/27/2021 1:23 AM) [facility] DI[facility]ATED AND SIGNED BY: JAMES CASTELLANOS MD DATE: 05/27/21122 CC: RAIN BARROS MD; ROCIO SANFORD PA ~MTH0 0 Heart Score: C/O Chest Pain: N/A HEART Score for Chest Pain: HEART Score for Chest Pain Response (Comments) Value History Slighlty/Non-Suspicious 0 ECG Normal 0 Age >45 - < 65 1 Risk Factors 1 or 2 Risk Factors 1 Troponin < Normal Limit 0 Total 2 Risk Factors: Risk Factors: DM, Current or recent (<one month) smoker, HTN, HLP, family history of CAD, obesity. Risk Scores: Score 0 - 3: 2.5% MACE over next 6 weeks - Discharge Home Score 4 - 6: 20.3% MACE over next 6 weeks - Admit for Clinical Observation Score 7 - 10: 72.7% MACE over next 6 weeks - Early Invasive Strategies Course & Med Decision Making: Course & Med Decision Making Pertinent Labs and Imaging studies reviewed. (See chart for details) Hydration and meds patient's symptoms improved while under observation in the emergency department. Patient requesting discharge home. Patient encouraged to avoid further alcohol. Patient encouraged to stay on a clear fluid diet for the next 48 hours. Patient encouraged to stop smoking. Patient encouraged to follow-up with primary care. Patient encouraged to complete her ultrasound as scheduled. Patient encouraged to complete her Covid vaccination. Patient encouraged to call her primary in the morning.. Patient amatory without problems at time of discharge. Patient encouraged to wear a mask that covers her nose and mouth (which she refused to do while in her room). Patient to self isolate until Covid results are known. Patient encouraged to get flu vaccination this season.. Patient encouraged to consider drug and alcohol abuse programs.. Impression 1. Alcohol intoxication = 112 2. Chronic abdomen pain 3. Migraine variant 4. Mild leukocytosis 15.4 5. Renal insufficiency BUN 25 creatinine 1.4- 6. Tobacco abuse 7. Constipated [] Dragon Disclaimer: Dragon Disclaimer: This electronic medical record was generated, in whole or in part, using a voice recognition dictation system. Departure Departure: Referrals: ROCIO SANFORD (PCP) Scripts Famotidine (PEPCID) 20 Mg Tablet 1 TAB PO BID for GERD and gastritis, #60 TAB 5 Refills Prov: RAIN BARROS MD 05/27/21 Phuong Disclaimer This chart was dictated in whole or in part using Voice Recognition software in a busy, high-work load, and often noisy Emergency Department environment. It may contain unintended and wholly unrecognized errors or omissions. Dragon Disclaimer This chart was dictated in whole or in part using Voice Recognition software in a busy, high-work load, and often noisy Emergency Department environment. It may contain unintended and wholly unrecognized errors or omissions. RAIN BARROS MD May 26, 2021 23:38
[2021-05-27] MEDS ORDERED: FAMOTIDINE 20 MG/2 ML VIAL IVP ONE (01:15)
[2021-05-27] MEDS ORDERED: IV RINGERS SOLUTION,LACTATED 1,000 ML IV SCH (01:15)
[2021-05-27] MEDS ORDERED: ONDANSETRON PF 4 MG/2 ML VIAL. IVP ONE (01:15)
--- NOTE | 2021-05-27 01:26 | RAD ---
EXAM: Frontal view of the chest, AP views of the abdomen in upright and supine positions. CLINICAL INDICATION: Reason: pain / Spl. Instructions: / History: COMPARISON: None. FINDINGS and IMPRESSION: The heart is not enlarged. Mediastinal and hilar contours are normal. No focal parenchymal airspace o pacity. No pleural effusion or pneumothorax. No abnormal small or large bowel dilatation. Moderate colonic stool content. No abnormal soft tissu e mass effect. No suspicious calcifications are seen. No free intraperitoneal gas. Electronically signed by: James You MD (05/27/2021 1:23 AM) [facility]
[2021-05-27] MEDS ORDERED: MAGNESIUM HYDROXIDE 2,400 MG/30 ML ORAL.SUSP. PO ONE (01:30)
[2021-05-27] MEDS ORDERED: SUCRALFATE 1 GM TABLET. PO ONE (01:30)
[2021-05-27] MEDS ORDERED: diphenhydrAMINE 50 MG/ML VIAL IVP ONE (01:30)
[2021-05-27 02:24] LABS: BASO # 0.2 x10^3/uL (0.0-0.2); BASO % 1 % (0-3); EOS # 0.3 x10^3/uL (0.0-0.7); EOS % 2 % (0-3); HEMATOCRIT 41.1 % (36.0-47.0); HEMOGLOBIN 13.2 g/dL (12.0-15.5); LYMPH # 2.9 x10^3/uL (1.0-4.8); LYMPH % 19 % (24-48); MEAN CORPUSCULAR HEMOGLOBIN 29 pg (25-35); MEAN CORPUSCULAR HGB CONC 32 g/dL (31-37); MEAN CORPUSCULAR VOLUME 90 fL (79-100); MONO # 0.9 x10^3/uL (0.0-1.1); MONO % 6 % (0-9); NEUT # 11.1 x10^3uL (1.8-7.7); NEUT % 72 % (31-73); PLATELET COUNT 350 x10^3/uL (140-400); RED BLOOD COUNT 4.58 x10^6/uL (3.50-5.40); RED CELL DISTRIBUTION WIDTH 15.3 % (11.5-14.5); WHITE BLOOD COUNT 15.4 x10^3/uL (4.0-11.0)
[2021-05-27 02:35] LABS: CALCIUM 9.2 mg/dL (8.5-10.1); CREATININE 1.4 mg/dL (0.6-1.0)
[2021-05-27 02:43] LABS: ALBUMIN 3.3 g/dL (3.4-5.0); DIRECT BILIRUBIN 0.1 mg/dL (0.0-0.2); TOTAL BILIRUBIN 0.1 mg/dL (0.2-1.0); TOTAL PROTEIN 7.2 g/dL (6.4-8.2)
[2021-05-27 02:45] LABS: INFLUENZA A PATIENT NEGATIVE (NEGATIVE); INFLUENZA B PATIENT NEGATIVE (NEGATIVE)
[2021-05-27 02:51] LABS: % EOS 3 % (0-5); % LYMPHS 32 % (24-48); % MONOS 3 % (0-10); % SEGS 62 % (35-66); PLT ESTIMATE ADEQUATE (ADEQUATE)
[2021-05-27] MEDS ORDERED: FAMO-63 PO (04:00)
[2021-05-27 04:05] VITALS: BP 108/62
--- NOTE | 2021-05-27 15:10 | NUR ---
IP: Patient notified of negative COVID19 test result. Verbalized understanding.
--- NOTE | 2021-05-27 19:29 | EKG ---
[address] [address] Test Date: 2021-05-27 Test Time: 01:01:54 Pat Name: MILLIE GUZMÁN Department: Room: Gender: F Scalper Operator: : 1965 Requested By: RAIN BARROS Order Number: [id number] Reading MD: Measurements Intervals [place] Rate: 81 P: 90 GA: 166 QRS: 85 QRSD: 92 T: 68 QT: 374 QTc: 435 Interpretive Statements SINUS RHYTHM NORMAL ECG RI6.02 No previous ECG available for comparison
== END 2021-05-27 04:12 | disposition home or self-care (01) ==
LOC: ER 21:54
DX: F10.129 Alcohol abuse with intoxication, unspecified (principal); G43.909 Migraine, unspecified, not intractable, without status migrainosus; D72.829 Elevated white blood cell count, unspecified; N28.9 Disorder of kidney and ureter, unspecified; K59.00 Constipation, unspecified; F17.210 Nicotine dependence, cigarettes, uncomplicated; F41.9 Anxiety disorder, unspecified; J44.9 Chronic obstructive pulmonary disease, unspecified; K21.9 Gastro-esophageal reflux disease without esophagitis; I10 Essential (primary) hypertension; Z20.822 Contact with and (suspected) exposure to COVID-19; Z87.440 Personal history of urinary (tract) infections; Z86.73 Personal history of transient ischemic attack (TIA), and cerebral infarction without residual deficits; Z88.0 Allergy status to penicillin; Y90.5 Blood alcohol level of 100-119 mg/100 ml
CPT/HCPCS: 36415; 74022; 80048; 80076; 82550; 83690; 84484; 85007; 85025; 86140; 87804; 93005; 96361; 96374; 96375; 99285; C9803; G0480; J1200; J2405; J3490; J7120; U0003

== ENCOUNTER 2021-06-29 21:20 | Emergency (ER) | payer BC ==
[~2021-06-29] VITALS: Ht 170.2 cm; Wt 81.9 kg
[~2021-06-29 21:20] MED LIST changes: +FAMO-63 PO; -LISI-517 PO; +LISI5TAB15 PO; +TIZA-75 PO; -TIZA4TAB2 PO
--- NOTE | 2021-06-29 21:39 | PHYS DOC ---
Past History Past Medical History: Anxiety, Asthma, Bronchitis, Constipation, COPD, GERD, Hypertension, Kidney Infection, Migraines, Stroke, UTI (RUT LEO RADIOLOGIC TECHNOLOGIST CHIEF) Past Surgical History: No Surgical History (RUT LEO RADIOLOGIC TECHNOLOGIST CHIEF) Smoking: Cigarettes Alcohol Use: Occasionally Drug Use: None, Benzodiazepine, Cocaine, Opiates (RUT LEO RADIOLOGIC TECHNOLOGIST CHIEF) Adult General HPI HPI Patient is a 56-year-old female patient presenting to the ED today complaining of moderate pain to the left hand, symptoms began yesterday after she fell down. Patient states she was drunk. Patient denies hitting her head on the ground, denies any loss of consciousness. States the pain is constant worse on touching the left palm, reports being right-handed (RUT LEO APRN) Review of Systems Review of Systems Constitutional: Denies fever or chills Musculoskeletal: Reports left hand pain Integument: Denies rash or skin lesions [] Neurologic: Denies headache, focal weakness or sensory changes [] All other systems were reviewed and found to be within normal limits, except as documented in this note. (RUT LOE RADIOLOGIC TECHNOLOGIST CHIEF) Allergies Allergies Allergies Coded Allergies Type Severity Reaction Last Updated Verified Penicillins Allergy Severe Rash 06/25/20 Yes (RUT LEO APRN) Physical Exam Physical Exam Constitutional: Well developed, well nourished, no acute distress, non-toxic appearance. [] Skin: Warm, dry, no erythema, no rash. [] Back: No tenderness, no CVA tenderness. [] Extremities: Left hand with no obvious deformity. Diffuse tenderness on the palm of the left hand worse along the thumb, no scaphoid tenderness to the left wrist. Passive as well as active range of motion to the left hand, adequate radial, median, ulnar sensation to the left hand. +2 left radial pulse. Cap refill less than 2 seconds to left fingers Neurologic: Alert and oriented X 3, normal motor function, normal sensory function, no focal deficits noted. [] Psychologic: Affect normal, judgement normal, mood normal. [] (RUT LEO RADIOLOGIC TECHNOLOGIST CHIEF) EKG EKG [] (RUT LEO APRN) Radiology/Procedures Radiology/Procedures []PROCEDURE: HAND LEFT 3V Three-view left hand dated 06/29/2021. No comparison available. Clinical data indication: Pain after fall. FINDINGS: 3 views of left hand show normal bony alignment. No displaced fracture. No acute osseous or articular abnormality. There is mild degenerative change of the interphalangeal joints throughout. Moderate degenerative change of the first carpometacarpal joint. There is deformity of the distal radius that likely is related to old healed fracture. IMPRESSION: 1. No acute radiographic abnormality. 2. Mild degenerative changes as above. Electronically signed by: Jefferson Thao MD (06/29/2021 9:50 PM) [facility] DICTATED AND SIGNED BY: JEFFERSON THAO MD DATE: 06/29/212146 CC: RUT LEO APRN; ROCIO SANFORD ~MTH0 0 (RUT LEO APRN) Heart Score C/O Chest Pain: N/A Risk Factors: Risk Factors: DM, Current or recent (<one month) smoker, HTN, HLP, family history of CAD, obesity. Risk Scores: Risk Factors: DM, Current or recent (<one month) smoker, HTN, HLP, family history of CAD, obesity. (RUT LEO APRN) Course & Med Decision Making Course & Med Decision Making Pertinent Labs and Imaging studies reviewed. (See chart for details) This is a 56-year-old female patient presenting to the ED today with left hand pain that began yesterday after she fell Left hand x-rays interpreted by radiologist are negative for any acute findings, noted for DJD. Patient already has a splint applied by herself, neurovascular exam done by me post splint application was normal. Follow-Up with Ortho. (RUT LEO APRN) Course & Med Decision Making Did not see or evaluate patient. Did not discuss patient with LEATHER WHITENER. Agree with LEATHER WHITENER's work-up and disposition per note. (AUGUSTO OSPINA MD) Dragon Disclaimer Dragon Disclaimer This electronic medical record was generated, in whole or in part, using a voice recognition dictation system. (RUT LEO APRN) Departure Departure: Impression: Primary Impression: Sprain of left hand Additional Impressions: Fall Degenerative joint disease of hand, left Disposition: HOME / SELF CARE / HOMELESS Condition: STABLE Referrals: ROCIO SANFORD (PCP) Follow-up in 1 week RAIN ESPINAL MD Follow-up in 1 wk Patient Instructions: Arthritis, Degenerative-Brief, Joint Sprain Additional Instructions: You were seen for left hand pain, your left hand x-rays are negative for any acute findings. Follow-up with your own doctor or the provided orthopedic doctor in 1 week. Ice and elevate the extremity. Wear your brace as tolerated. Scripts Naproxen (NAPROXEN) 375 Mg Tablet 1 TAB PO DAILY for pain for 5 Days, #5 TAB 0 Refills with food Prov: RUT LEO APRN 06/29/21 Problem Qualifiers Primary Impression: Sprain of left hand Encounter type: initial encounter Qualified Codes: S63.92XA - Sprain of unspecified part of left wrist and hand, initial encounter Additional Impressions: Fall Encounter type: initial encounter Qualified Codes: W19.XXXA - Unspecified fall, initial encounter Degenerative joint disease of hand, left Osteoarthritis type: unspecified Qualified Codes: M19.042 - Primary osteoarthritis, left hand RUT LEO APRN Jun 29, 2021 21:39 AUGUSTO OSPINA MD Jun 30, 2021 00:02
--- NOTE | 2021-06-29 21:52 | RAD ---
Three-view left hand dated 06/29/2021. No comparison available. Clinical data indication: Pain after fall. FINDINGS: 3 views of left hand show normal bony alignment. No displaced fracture. No acute osseous or articular abnormality. There is mild degenerative change of the interphalangeal joints throughout. Moderate de generative change of the first carpometacarpal joint. There is deformity of the distal radius that li schuyler is related to old healed fracture. IMPRESSION: 1. No acute radiographic abnormality. 2. Mild degenerative changes as above. Electronically signed by: Jefferson Thao MD (06/29/2021 9:50 PM) [facility]
[2021-06-29] MEDS ORDERED: NAPR-695 PO (21:58)
[2021-06-29 22:00] VITALS: BP 106/84
== END 2021-06-29 22:04 | disposition home or self-care (01) ==
LOC: ER 21:26
DX: S63.92XA Sprain of unspecified part of left wrist and hand, initial encounter (principal); M19.042 Primary osteoarthritis, left hand; F41.9 Anxiety disorder, unspecified; J44.9 Chronic obstructive pulmonary disease, unspecified; K21.9 Gastro-esophageal reflux disease without esophagitis; I10 Essential (primary) hypertension; G43.909 Migraine, unspecified, not intractable, without status migrainosus; F17.210 Nicotine dependence, cigarettes, uncomplicated; Z86.73 Personal history of transient ischemic attack (TIA), and cerebral infarction without residual deficits; Z87.440 Personal history of urinary (tract) infections; Z88.0 Allergy status to penicillin; W18.39XA Other fall on same level, initial encounter; Y93.89 Activity, other specified; Y92.89 Other specified places as the place of occurrence of the external cause; Y99.8 Other external cause status
CPT/HCPCS: 29125; 73130; 99283